=== PATIENT | male | born 1965 | race African-American/Black ===

== ENCOUNTER 2016-09-05 16:05 | Emergency (ER) | payer SELFPAY ==
[~2016-09-05] VITALS: Ht 185.4 cm; Wt 75.3 kg
[~2016-09-05 16:05] MED LIST: HYDR-1421; RABE20TA5
[2016-09-05 18:07] VITALS: BP 135/78
[2016-09-05] MEDS ORDERED: KETOROLAC TROMETH 60MG/2ML VIAL IM ONE (20:00)
== END 2016-09-05 20:12 | disposition home or self-care (01) ==
LOC: ER 16:10
DX: S13.9XXA Sprain of joints and ligaments of unspecified parts of neck, initial encounter (principal); M79.1 Myalgia; K21.9 Gastro-esophageal reflux disease without esophagitis; G89.29 Other chronic pain; M54.5 Low back pain; Z59.0 Homelessness; V49.40XA Driver injured in collision with unspecified motor vehicles in traffic accident, initial encounter; Y93.89 Activity, other specified; Y99.8 Other external cause status; Y92.89 Other specified places as the place of occurrence of the external cause
CPT/HCPCS: 96372; 99283; J1885

== ENCOUNTER → 2021-10-24 | Emergency (ER) | payer MEDICAID ==
[~2021-10-24] VITALS: Ht 185.4 cm; Wt 80.7 kg
[~2021-10-24] MED LIST changes: +ASPirin 81 mg TAB PO ONE; +RABE20TA19; -RABE20TA5
[2021-10-24 14:25] LABS: Eosinophils # (auto) 0.1 10 ^3/uL (0-0.8); Monocytes # (auto) 0.5 10 ^3/uL (0-1.3)
[2021-10-24 14:28] LABS: Basophils # (auto) 0.1 10 ^3/uL (0-0.2); Basophils % (auto) 2.8 % (0.0-2.0); Eosinophils % (auto) 2.9 % (0.0-7.0); Hematocrit 34.8 % (41.0-53.0); Hemoglobin 10.9 g/dL (13.5-17.5); Lymphocytes # (auto) 0.5 10 ^3/uL (0.4-5.4); Lymphocytes % (auto) 11.3 % (10.0-50.0); Mean Corpuscular Hemoglobin 24.1 pg (28.0-32.0); Mean Corpuscular Hgb Conc. 31.4 g/dL (32.0-36.0); Mean Corpuscular Volume 76.8 fL (80.0-100.0); Monocytes % (auto) 11.5 % (0.0-12.0); Neutrophils # (auto) 3.1 10 ^3/uL (1.6-8.6); Neutrophils % (auto) 71.5 % (37.0-80.0); Nucleated Red Blood Cells % 0.3 %; Red Blood Cells 4.53 10^6/uL (4.5-5.90); White Blood Cell 4.3 10^3/uL (4.4-10.8)
[2021-10-24 14:33] LABS: Albumin 3.1 g/dL (3.4-5.0); Calcium 8.5 mg/dL (8.5-10.1)
[2021-10-24 14:37] LABS: BUN/Creatinine Ratio 10.8; Bilirubin, Total 0.6 mg/dL (0.2-1.0); Total Protein 6.8 g/dL (6.4-8.2)
[2021-10-24 17:12] LABS: Urine Bacteria NONE SEEN /hpf (None Seen); Urine Blood Negative /uL (Negative); Urine Mucus FEW (None Seen); Urine Specific Gravity 1.025 (1.001-1.035); Urine WBC 1 /hpf (0 - 3)
[2021-10-24 17:43] VITALS: BP 135/89
== END | disposition home or self-care (01) ==
LOC: ER 12:39
DX: R00.2 Palpitations (principal); K21.9 Gastro-esophageal reflux disease without esophagitis; Z79.899 Other long term (current) drug therapy
CPT/HCPCS: 36415; 70450; 71045; 80053; 81001; 84443; 84484; 85025; 93005

== ENCOUNTER → 2024-03-10 | Outpatient (CLI) | payer MEDICAID ==
[~2024-03-10] MED LIST changes: -ASPirin 81 mg TAB PO ONE
--- NOTE | 2024-03-10 13:29 | DVH ---
EXAM: XY CHEST TWO VIEWS ROUTINE TECHNIQUE: Two radiographic views of the chest CLINICAL HISTORY: SOB COMPARISON: 10/24/2021 Findings/Impression: Frontal and lateral chest radiographs demonstrate no acute osseous or superficial soft tissue abnorma lities. The trachea is midline. The cardiac silhouette is within normal limits. Enlarged pulmonary arteries. Correlate for pulmonary artery hypertension. No pneumothorax, pleural effusions, or consolidations.
== END | disposition home or self-care (01) ==
LOC: Rad HDHVI 12:54
PROVIDERS: ATTEND Internal Medicine Cardiovascular Disease
DX: R06.02 Shortness of breath (principal); I77.89 Other specified disorders of arteries and arterioles
CPT/HCPCS: 71046

== ENCOUNTER → 2024-03-23 | Outpatient (CLI) | payer MEDICAID ==
[~2024-03-23] VITALS: Ht 188 cm; Wt 72.6 kg
[~2024-03-23] MED LIST changes: +ADENOSINE 61 MG in GIVE UN-DILUTED 0 ML IV ONE; +ADENOSINE 90 MG/30 ML INJ IV ONE
== END | disposition home or self-care (01) ==
LOC: Rad HDHVI 13:19
PROVIDERS: ATTEND Internal Medicine Cardiovascular Disease
DX: J44.9 Chronic obstructive pulmonary disease, unspecified (principal); I73.9 Peripheral vascular disease, unspecified; I50.23 Acute on chronic systolic (congestive) heart failure; F17.210 Nicotine dependence, cigarettes, uncomplicated
CPT/HCPCS: 78452; 93005; 96374; A9500; J0153; 96375

== ENCOUNTER → 2024-03-30 | Outpatient (CLI) | payer MEDICAID ==
[~2024-03-30] MED LIST changes: -ADENOSINE 61 MG in GIVE UN-DILUTED 0 ML IV ONE; -ADENOSINE 90 MG/30 ML INJ IV ONE
== END | disposition home or self-care (01) ==
LOC: Rad HDHVI 09:42
PROVIDERS: ATTEND Internal Medicine Cardiovascular Disease
CPT/HCPCS: 93925

== ENCOUNTER 2024-07-27 20:15 | Inpatient (IN) | payer MEDICAID ==
[~2024-07-27] VITALS: Ht 185.4 cm; Wt 75.4 kg
[2024-07-27] MEDS: IPRATROPIUM BROM 0.5 MG/2.5ML INH SOL NEB ONE (20:47)
[2024-07-27] MEDS: ALBUTEROL SULF 2.5 MG/0.5ML(0.5%) NEB SOLN NEB ONE (20:47)
[2024-07-27 21:04] LABS: Basophils # (auto) 0 10 ^3/uL (0-0.2); Eosinophils # (auto) 0.1 10 ^3/uL (0-0.8); Eosinophils % (auto) 3.2 % (0.0-7.0); Hematocrit 38.6 % (41.0-53.0); Hemoglobin 12.7 g/dL (13.5-17.5); Lymphocytes # (auto) 0.5 10 ^3/uL (0.4-5.4); Lymphocytes % (auto) 15.2 % (10.0-50.0); Mean Corpuscular Hemoglobin 33.2 pg (28.0-32.0); Mean Corpuscular Volume 100.6 fL (80.0-100.0); Monocytes # (auto) 0.5 10 ^3/uL (0-1.3); Monocytes % (auto) 14.4 % (0.0-12.0); Neutrophils # (auto) 2.4 10 ^3/uL (1.6-8.6); Neutrophils % (auto) 66.2 % (37.0-80.0); Nucleated Red Blood Cells % 0.5 %; Platelet Count (auto) 221 10^3/uL (140-450); Red Blood Cells 3.84 10^6/uL (4.5-5.90); Red Cell Distribution Width 19.5 % (11.8-14.3); White Blood Cell 3.6 10^3/uL (4.4-10.8)
[2024-07-27 21:06] LABS: Chloride 105 mmol/L (98-107); Sodium 143 mmol/L (136-145)
[2024-07-27 21:07] LABS: Anion Gap 13 (5-15); Carbon Dioxide 25 mmol/L (20-31)
[2024-07-27 21:11] LABS: Calcium 8.4 mg/dL (8.7-10.4); Potassium 3.2 mmol/L (3.5-5.1)
[2024-07-27 21:12] LABS: BUN/Creatinine Ratio 9.1 (10.0-20.0); Glucose 88 mg/dL (74-106)
[2024-07-27 21:13] LABS: Blood Urea Nitrogen 6 mg/dL (9-23)
--- NOTE | 2024-07-27 21:31 | ED.PDOC ---
History of Present Illness HPI Comments 58 y/o M presents with c/o chest pain, today. Patient is a poor historian and endorses on constant pain in his chest following unprovoked onset a few days ago. He states on seeing his PCP in-person regarding pain and refusing to be sent to his nearest emergency department via ambulance on 07/24/24 and coming, today, due to his daughter bringing him, while visiting from out-of-town. He reports no further relevant or pertinent information, such as recent injuries, sick contact, stressors, or strenuous activities. He denies any shortness of breath, palpitations, nausea, vomiting, fever, chills, or other associated symptoms or modifying factors at this time. Patient has a reported history of CHF, COPD, and GERD Chief Complaint: Chest Pain Time Seen by MD: 20:22 Primary Care Provider: ALIAK Reviewed Notes: Nurses Notes, Medications, Allergies Allergies: Coded Allergies: NO KNOWN ALLERGIES (Unverified , 03/03/10) Home Meds Reported Medications Rabeprazole Sodium (Aciphex) 20 Mg Tab 03/03/10 Hydrocodone-Acetaminophen (Vicodin) 1 Tab Tab 03/03/10 Information Source: Patient Mode of Arrival: Wheelchair Severity: Moderate Timing: Days Duration: Since onset Prehospital treatment: None Past Medical History PAST MEDICAL HISTORY: CHF, COPD, GERD Surgical History: Denies all surgeries Family History Family History: Unknown Social History Smoker: Non-Smoker Alcohol: Denies ETOH Use Drugs: Denies Drug Use Lives In: Home All Other Systems: Reviewed and Negative (Comprehensive systems review obtained and negative except for what is stated in the HPI.) Physical Exam General Appearance: No Apparent Distress, Normal HEENT: Normal ENT Inspection, Pharynx Normal, TMs Normal Neck: Full Range of Motion, Non-Tender, Normal, Normal Inspection Respiratory: Chest Non-Tender, Lungs Clear, No Accessory Muscle Use, No Respiratory Distress, Normal Breath Sounds, Wheezing (expiratory, bilateral lung jimenez ) Cardiovascular: No Edema, No JVD, No Murmur, No Gallop, Normal Peripheral Pulses, Tachycardia, Other (regular rhythm ) Breast Exam: Deferred Gastrointestinal: No Organomegaly, Non Tender, No Pulsatile Mass, Normal Bowel Sounds, Soft Genitalia: Deferred Pelvic: Deferred Rectal: Deferred Extremities: No calf tenderness, Normal capillary refill, Normal inspection, Normal range of motion, Non-tender, No pedal edema Musculoskeletal : Apperance: Normal Neurologic: Alert, linux administrator II-XII nml as Tested, No Motor Deficits, Normal Affect, Normal Mood, No Sensory Deficits Cerebellar Function: Normal Reflexes: Normal Skin: Dry, Normal Color, Warm Lymphatic: No Adenopathy Was a procedure done? Was a procedure done?: No EKG EKG : Pulse Rate (adult): 116 [place]: Normal Cardiac Rhythm: ST Block: None Hypertrophy: None ST: Normal Differential Dx Considerations may include: MA, ACS, PE, viral syndrome, musculoskeletal pain, GERD, gastritis, costochondritis, pericarditis, PNA, URI, among others X-Ray, Labs, Meds, VS Vital Signs Date Time Temp Pulse Resp B/P (MAP) Pulse Ox O2 Delivery O2 Flow Rate FiO2 07/27/24 21:31 116 07/27/24 21:14 105 07/27/24 20:47 22 96 Room Air* 0 21 07/27/24 20:23 116 07/27/24 20:20 98.4 108 18 126/83 (97) 94 98.4 Lab Test 07/27/24 21:30 07/27/24 20:30 Range/Units Troponin I High Sensitivity 67 *H 76 *H </=54 ng/L White Blood Count 3.6 L 4.4-10.8 10^3/uL Red Blood Count 3.84 L 4.5-5.90 10^6/uL Hemoglobin 12.7 L 13.5-17.5 g/dL Hematocrit 38.6 L 41.0-53.0 % Mean Corpuscular Volume 100.6 H 80.0-100.0 fL Mean Corpuscular Hemoglobin 33.2 H 28.0-32.0 pg Mean Corpuscular Hemoglobin Concent 33.0 32.0-36.0 g/dL Red Cell Distribution Width 19.5 H 11.8-14.3 % Platelet Count 221 140-450 10^3/uL Mean Platelet Volume 7.7 6.9-10.8 fL Neutrophils (%) (Auto) 66.2 37.0-80.0 % Lymphocytes (%) (Auto) 15.2 10.0-50.0 % Monocytes (%) (Auto) 14.4 H 0.0-12.0 % Eosinophils (%) (Auto) 3.2 0.0-7.0 % Basophils (%) (Auto) 1.0 0.0-2.0 % Neutrophils # (Auto) 2.4 1.6-8.6 10 ^3/uL Lymphocytes # (Auto) 0.5 0.4-5.4 10 ^3/uL Monocytes # (Auto) 0.5 0-1.3 10 ^3/uL Eosinophils # (Auto) 0.1 0-0.8 10 ^3/uL Basophils # (Auto) 0 0-0.2 10 ^3/uL Nucleated Red Blood Cells 0.5 % Sodium Level 143 136-145 mmol/L Potassium Level 3.2 L 3.5-5.1 mmol/L Chloride Level 105 98-107 mmol/L Carbon Dioxide Level 25 20-31 mmol/L Anion Gap 13 5-15 Blood Urea Nitrogen 6 L 9-23 mg/dL Creatinine 0.66 L 0.700-1.30 mg/dL Glomerular Filtration Rate Calc 108 >90 mL/min BUN/Creatinine Ratio 9.1 L 10.0-20.0 Serum Glucose 88 74-106 mg/dL Calcium Level 8.4 L 8.7-10.4 mg/dL B-Type Natriuretic Peptide 491.21 0-100 pg/mL Current Medications Medications (Trade) Dose Ordered Sig/[place] Route Start Time Stop Time Status Last Admin Albuterol (Ventolin Medneb) 5 mg ONCE ONCE NEB 07/27/24 20:30 07/27/24 20:31 DC 07/27/24 20:47 Ipratropium [place] (Atrovent Medneb) 0.5 mg ONCE ONCE NEB 07/27/24 20:30 07/27/24 20:31 DC 07/27/24 20:47 Time of 1ST Reevaluation: 20:52 Reevaluation 1ST: Unchanged Patient Education/Counseling: Diagnosis, Treatment Family Education/Counseling: No Family Present Additional Information Previous visit documents reviewed: October 24, 2021 encounter for eye pain and swelling The following tests were ordered, and results were reviewed by me: CXR, BMP, CBC, BNP, EKG, troponin Additional Information was gathered from interviewing the following independent historians: n/a I reviewed and agreed with the following test results read by other providers: CXR I discussed treatment and results with medical personnel and: Patient Departure 1 Departure Time of Disposition: 22:51 (Patient presented with chest pain that was concerning for possible STEMI, ACS, PE, Pneumonia, Muscle Strain, COPD, Dissection. Data: 1. I ordered and reviewed the result of at least 3 labs including a CBC, BMP, and Troponin. 2. I independently interpreted the following tests: EKG which shows sinus arrhythmia and Chest X-ray which shows emphysematous changes.Risk:This patient has a high risk of morbidity due to further diagnostic testing or treatment and may suffer from an acute cardiac or respiratory disorder. Workup reveals concern for ACS and patient should be admitted for further workup and possible expert consultation. ) Impression: Primary Impression: Acute chest pain Additional Impression: Shortness of breath Disposition: ADMITTED INPATIENT Admit to: Med Surg Condition: Serious Critical Care Note Critical Care Time?: Yes Critical care comment: Acute chest pain Authorized and Performed by: Valentina Badillo MD Total critical care time: Approximately 39 minutes Due to a high probability of clinically significant, life threatening de terioration, the patient required my highest level of preparedness to intervene emergently and I personally spent this critical care time directly and personally managing the patient. This critical care time included obtaining a history; examining the patient; pulse oximetry; ordering and review of studies; arranging urgent treatment with development of a management plan; evaluation of patient's response to treatment; frequent reassessment; and, discussions with other providers. This critical care time was performed to assess and manage the high probability of imminent, life-threatening deterioration that could result in multi-organ failure. It was exclusive of separately billable procedures and treating other patients and teaching time. Please see my other sections and the rest of the note for further information on patient assessment and treatment. Stability Stability form required: No Heart Score Heart Score: Heart Score Response (Comments) Value History Moderate Suspicious 1 EKG Normal 0 Age 45-64 1 Risk Factors 1 or 2 risk factors 1 Troponin 1-2 x's Normal limit 1 Total 4 I personally scribed for VALENTINA BADILLO MD ([email or web address]) on 07/27/24 at 21:31. Electronically submitted by Shawn Hall ([email or web address]). I personally scribed for VALENTINA BADILLO MD ([email or web address]) on 07/27/24 at 21:39. Electronically submitted by Shawn Hall ([email or web address]). VALENTINA BADILLO MD Jul 27, 2024 21:31
--- NOTE | 2024-07-27 22:22 | DVH ---
CHEST RADIOGRAPH Indication: sob Technique: Single frontal view of the chest was obtained COMPARISON: CHEST PORTABLE on DOS: 03/10/2024 FINDINGS: Lines and Tubes: None Lungs: Findings suggestive of emphysematous changes. No pulmonary infiltrates or edema. Enlarged pulm onary arteries suggestive of pulmonary arterial hypertension. Pleura: No effusion. No pneumothorax. Cardiomediastinal contours: Unremarkable IMPRESSION: No definite acute abnormality identified. Findings suggestive of emphysematous changes and pulmonary arterial hypertension.
[2024-07-27] MEDS ORDERED: MORPHINE SULFATE INJ 2 MG/ml SYRG IV PRN (23:30)
[2024-07-27] MEDS ORDERED: ONDANSETRON HCL 4 MG/2 ML VIAL IV PRN (23:30)
[2024-07-27] MEDS ORDERED: ACETAMINOPHEN 325 MG TAB PO PRN (23:30)
[2024-07-27] MEDS ORDERED: NITROGLYCERIN 0.4 MG SL TAB SL PRN (23:30)
--- NOTE | 2024-07-27 23:55 | DVHHPRES ---
History of Present Illness Resident Creating Document: BRIANNE ALVAREZ RESDIENT History of Present Illness This is a 58-year-old male with past medical history of CHF, ? COPD, and GERD brought to the hospital due to chest pain. Per patient, he has a chronic chest pain (almost 2 years), which has increased since 3 days. Pain is localized on left side, pressure-like, constant, 7/10, with no clear exacerbating or relieving factor, but decreases by taking [place]. He also reports cough, shortness of breaths, dysphagia, odynophagia, alternating constipation and diarrhea, decreased oral intake, unintentional weight loss of 15 lb within last year, and generalized weakness. He denies fever, dysuria, or any recent sick contact and travel history. Three days back upon PCP office visit he was recommended to visit ER due to heart condition but the patient denied to visit the ER. PMHx: CHF, ? COPD, and GERD PSHx: Has history of herniated disc Family history: Noncontributory Social history: Current smoker with 20 pack year history, smokes weeds, drink occasionally, denies any other drug use, uses walker for mobility due to bilateral lower limb weakness (possible due to low back herniated disc) Home medication: Lasix and albuterol Allergic history: No known allergy Review of Systems Review of Systems General: Reports generalized weakness, decreased oral intake and weight loss HEENT: No headaches, visiual changes, hearing loss, tinnitus, nasal congestion and discharge, and sore throat. Cardiovascular: Reports chest pain Respiratory: Reports shortness of breaths Gastrointestinal: Reports dysphagia, odynophagia, nausea, vomiting and alternating diarrhea and constipation Genitourinary: No dysuria, hematuria, discharge, frequency, urgency, nocturia, incontinence, and urinary retention. Endocrine: No heat or cold intolerance, polydipsia, polyuria, and polyphagia. Neurological: No dizziness, extremity weakness and numbness, tremors, gait disturbance, seizures, and memory impairment. Psychiatric: Denies depression, anxiety,or insomnia. Musculoskeletal: Reports low back pain and bilateral lower limb weakness Skin: No rashes, itching, skin lesion, changes in hair, nail, skin texture and breast. Hematologic/Lymphatic: Denies easy bruising, bleeding tendencies, or lymph node enlargement. Allergies: Coded Allergies: NO KNOWN ALLERGIES (Unverified , 03/03/10) Exam Vital Signs Vital Signs Date Time Temp Pulse Resp B/P (MAP) Pulse Ox O2 Delivery O2 Flow Rate FiO2 07/27/24 23:07 98 07/27/24 22:33 98.5 16 128/84 (99) 93 98.5 07/27/24 20:47 Room Air* 0 21 Exam General Appearance: Alert, Oriented X3, Cooperative, No acute distress HEENT: Atraumatic, PERRLA, EOMI, Mucous membrane moist/pink Respiratory: Clear to auscultation, Normal air movement Cardiovascular: Regular rate, Normal S1, Normal S2, No murmurs, no chest wall tenderness Abdominal: Normal bowel sounds, Soft, No tenderness, No hepatospenomegaly, No masses Extremities: Bilateral grade 1 pedal edema Skin: No rashes, No breakdown, No significant lesion Neuro: Bilateral lower limb power 4/5 Psych/Mental Status: Mental status NL, Mood NL Labs/Xrays Labs Test 07/27/24 23:44 07/27/24 20:30 Range/Units White Blood Count 3.6 L 4.4-10.8 10^3/uL Red Blood Count 3.84 L 4.5-5.90 10^6/uL Hemoglobin 12.7 L 13.5-17.5 g/dL Hematocrit 38.6 L 41.0-53.0 % Mean Corpuscular Volume 100.6 H 80.0-100.0 fL Mean Corpuscular Hemoglobin 33.2 H 28.0-32.0 pg Mean Corpuscular Hemoglobin Concent 33.0 32.0-36.0 g/dL Red Cell Distribution Width 19.5 H 11.8-14.3 % Platelet Count 221 140-450 10^3/uL Mean Platelet Volume 7.7 6.9-10.8 fL Neutrophils (%) (Auto) 66.2 37.0-80.0 % Lymphocytes (%) (Auto) 15.2 10.0-50.0 % Monocytes (%) (Auto) 14.4 H 0.0-12.0 % Eosinophils (%) (Auto) 3.2 0.0-7.0 % Basophils (%) (Auto) 1.0 0.0-2.0 % Neutrophils # (Auto) 2.4 1.6-8.6 10 ^3/uL Lymphocytes # (Auto) 0.5 0.4-5.4 10 ^3/uL Monocytes # (Auto) 0.5 0-1.3 10 ^3/uL Eosinophils # (Auto) 0.1 0-0.8 10 ^3/uL Basophils # (Auto) 0 0-0.2 10 ^3/uL Nucleated Red Blood Cells 0.5 % Sodium Level 143 136-145 mmol/L Potassium Level 3.2 L 3.5-5.1 mmol/L Chloride Level 105 98-107 mmol/L Carbon Dioxide Level 25 20-31 mmol/L Anion Gap 13 5-15 Blood Urea Nitrogen 6 L 9-23 mg/dL Creatinine 0.66 L 0.700-1.30 mg/dL Glomerular Filtration Rate Calc 108 >90 mL/min BUN/Creatinine Ratio 9.1 L 10.0-20.0 Serum Glucose 88 74-106 mg/dL Calcium Level 8.4 L 8.7-10.4 mg/dL B-Type Natriuretic Peptide 491.21 0-100 pg/mL Assessment/Plan Assessment/Plan NSTEMI, possible type 1 History of heart failure EKGs shows T-wave inversion and mild ST depression on inferior leads Consult cardiology Check echocardiogram Aspirin Atorvastatin Continue Lasix COPD exacerbation SIRS positive Check sputum culture, MRSA and COVID Solu-Medrol Empiric antibiotic, azithromycin Breathing treatment Oxygen through nasal cannula GERD history Patient reports unintentional weight loss, odynophagia/dysphagia Protonix Consulted GI Current cigarettes smoker Current weeds smoker Patient was consulted for smoking cessation for more than 15 minutes Hypokalemia, repleted Hypomagnesemia, repleted DIET: Cardiac diet DVT PROPHYLAXIS: Lovenox GI PROPHYLAXIS:: Protonix CODE STATUS: Goal of care for more than 18 minutes, full code DISPOSITION: Telemetry Patient's status and plan discussed with the patient and patient's daughters at the bedside. Case discussed with Dr. Levin. Plan discussed with: Patient, Other (RN) Date of Service: Jul 27, 2024 Billing Provider: MARÍA LEVIN MD Common Visit Codes: 12385-RIDOPIR INP/OBS CARE (HIGH) Secondary Visit Codes: 35125-NVFLEEXC CARE PLAN 30 MINUTES BRIANNE ALVAREZ RESDIENT Jul 27, 2024 23:55 MARÍA LEVIN MD Jul 28, 2024 15:37
[2024-07-28] VITALS (15 sets, daily range): BP systolic 114–133; BP diastolic 67–92; PULSE 64–105; RESP 15–20; TEMP 97.2–98.4; O2SAT 90–100
[2024-07-28 01:37] LABS: Triglycerides 74 mg/dL (< 150)
[2024-07-28 01:38] LABS: LDL Cholesterol 48 mg/dL (< 100)
[2024-07-28 01:39] LABS: Cholesterol 191 mg/dL (< 200)
[2024-07-28 01:43] LABS: HDL Cholesterol 117 mg/dL (40-59)
[2024-07-28] MEDS: PANTOPRAZOLE 40 MG/10 ML VIAL INJ IV ONE (02:51)
[2024-07-28] MEDS: ASPirin 325 MG TAB PO ONE (02:51)
[2024-07-28] MEDS: ATORVASTATIN 20 MG TAB PO ONE (02:52)
[2024-07-28] MEDS: AZITHROMYCIN 500MG/ 250ML 250 ML IV ONE (03:03)
--- NOTE | 2024-07-28 05:37 | ECG ---
[facility] Test Date: 2024-07-27 Test Time: 21:14:34 Pat Name: REJI BALLARD Department: ED Room: [facility]5T A Gender: M Hotel Operations Manager: DAPHNIE : 1965 Requested By: VALENTINA MELGAR Order Number: [id number] Reading MD: Vincent Edwards Measurements Intervals [place] Rate: 105 P: 84 MA: 157 QRS: 159 QRSD: 83 T: -29 QT: 351 QTc: 465 Interpretive Statements Sinus tachycardia Right ventricular hypertrophy Nonspecific T abnormalities, anterior leads Electronically Signed On 07-30-2024 14:00:03 PDT by Vincent Edwards Please click the below link to view image of tracing.
--- NOTE | 2024-07-28 05:38 | ECG ---
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
[2024-07-28 05:48] LABS: COVID19 ANTIGEN SOFIA FIA NEGATIVE (NEGATIVE)
[2024-07-28] MEDS: LEVALBUTEROL HCL 1.25 MG/3 ML NEB NEB SCH (06:19)
[2024-07-28] MEDS: IPRATROPIUM BROM 0.5 MG/2.5ML INH SOL NEB SCH (06:19)
[2024-07-28 08:04] LABS: Anion Gap 8 (5-15); Carbon Dioxide 29 mmol/L (20-31); Chloride 105 mmol/L (98-107); Sodium 142 mmol/L (136-145)
[2024-07-28 08:05] LABS: Potassium 3.1 mmol/L (3.5-5.1)
[2024-07-28 08:10] LABS: BUN/Creatinine Ratio 7.5 (10.0-20.0); Glucose 89 mg/dL (74-106)
[2024-07-28 08:12] LABS: Blood Urea Nitrogen 5 mg/dL (9-23); Calcium 7.9 mg/dL (8.7-10.4); Magnesium 1.3 mg/dL (1.6-2.6)
[2024-07-28 08:22] LABS: Basophils # (auto) 0.1 10 ^3/uL (0-0.2); Basophils % (auto) 1.3 % (0.0-2.0); Eosinophils # (auto) 0.1 10 ^3/uL (0-0.8); Eosinophils % (auto) 2.4 % (0.0-7.0); Hematocrit 34.2 % (41.0-53.0); Hemoglobin 11.4 g/dL (13.5-17.5); Lymphocytes # (auto) 0.4 10 ^3/uL (0.4-5.4); Lymphocytes % (auto) 10.8 % (10.0-50.0); Mean Corpuscular Hemoglobin 33.6 pg (28.0-32.0); Mean Corpuscular Hgb Conc. 33.4 g/dL (32.0-36.0); Mean Corpuscular Volume 100.6 fL (80.0-100.0); Monocytes # (auto) 0.7 10 ^3/uL (0-1.3); Monocytes % (auto) 17.8 % (0.0-12.0); Neutrophils # (auto) 2.8 10 ^3/uL (1.6-8.6); Neutrophils % (auto) 67.7 % (37.0-80.0); Nucleated Red Blood Cells % 0.6 %; Platelet Count (auto) 195 10^3/uL (140-450); Red Cell Distribution Width 19.1 % (11.8-14.3); White Blood Cell 4.1 10^3/uL (4.4-10.8)
--- NOTE | 2024-07-28 08:48 | ECG ---
[facility] Test Date: 2024-07-27 Test Time: 20:23:43 Pat Name: REJI BALLARD Department[facility] Gender: M Farm Manager: RYAN : 1965 Requested By: VALENTINA MELGAR Order Number: [id number] Reading MD: Vincent Edwards Measurements Intervals [place] Rate: 116 P: 79 IA: 138 QRS: 164 QRSD: 92 T: 85 QT: 469 QTc: 652 Interpretive Statements Sinus tachycardia Probable left atrial enlargement RVH with secondary repolarization abnrm Prolonged QT interval Electronically Signed On 07-30-2024 13:59:50 PDT by Vincent Edwards Please click the below link to view image of tracing.
[2024-07-28 09:11] LABS: Rapid Influenza A Negative (Negative); Rapid Influenza B Negative (Negative)
--- NOTE | 2024-07-28 09:28 | DVHPN2 ---
Progress Note - Dictate Date Seen: Jul 28, 2024 Medical Necessity Reason Pt with a Central, PICC or Fol: No Subjective PT WITH CHEST PAIN TROPONIN NEGATIVE HX OF CHF COPD HTN MILD ANEMIA ELEVATED MCV HYPOKALEMIA vital signs Vital Sign Date Time Temp Pulse Resp B/P (MAP) Pulse Ox O2 Delivery O2 Flow Rate FiO2 07/28/24 06:25 77 18 100 07/28/24 06:19 Nasal Cannula 3.0 07/28/24 06:19 32 07/28/24 05:00 98.3 122/67 (85) 98.3 Total Intake and Output 07/27/24 07/27/24 07/28/24 15:00 23:00 07:00 Intake Total 30 ml Balance 30 ml medications Current Medications Medications Dose Ordered Sig/Kalia Route Start Time Stop Time Status Last Admin Dose Admin Acetaminophen 650 mg Q6HP PRN PO 07/27/24 23:30 Acetaminophen/ Hydrocodone Bitart 1 tab Q4HP PRN PO 07/27/24 23:30 Ondansetron HCl 4 mg Q4HP PRN IV 07/27/24 23:30 Morphine Sulfate 2 mg Q4HPRN PRN IV 07/27/24 23:30 Enoxaparin Sodium 40 mg DAILY SC 07/28/24 10:00 Nitroglycerin 0.4 mg Q5MINP PRN SL 07/27/24 23:30 Morphine Sulfate 2 mg Q30M PRN IV 07/27/24 23:30 Atorvastatin Calcium 40 mg HS PO 07/28/24 22:00 Aspirin 81 mg DAILY PO 07/29/24 10:00 Pantoprazole Sodium 40 mg DAILY IV 07/28/24 10:00 Azithromycin 250 ml @ 125 mls/hr DAILY IV 07/29/24 10:00 Levalbuterol HCl 0.625 mg Q6HR NEB 07/28/24 06:00 07/28/24 06:19 0.625 MG Ipratropium [place] 0.5 mg Q6HWA NEB 07/28/24 06:00 07/28/24 06:19 0.5 MG Furosemide 20 mg BIDD IV 07/28/24 18:00 UNV laboratory and microbiology Laboratory Tests 07/28/24 07:07 Test 07/28/24 07:07 Range/Units Serum Glucose Pending Problem List CHEST PAIN TROPONIN NEGATIVE HX OF CHF COPD HTN MILD ANEMIA ELEVATED MCV HYPOKALEMIA Assessment/Plan WILL CONSIDER LHC SINCE PT WITH RECURRENT CP STRESS CARDIOLITE ON 03/30/24 SHOWS NORMAL PERFUSION Plan discussed with: Patient ADEN SMILEY MD Jul 28, 2024 09:28
[2024-07-28] MEDS: PANTOPRAZOLE 40 MG/10 ML VIAL INJ IV SCH (10:00)
[2024-07-28] MEDS: ENOXAPARIN SOD 40 MG/0.4 ML SYRINGE SC SCH (10:01)
[2024-07-28] MEDS: POTASSIUM CHL 20 Meq TABLET PO ONE (10:01)
[2024-07-28 10:57] LABS: Folate (Folic Acid) 5.84 ng/mL (>5.38)
[2024-07-28 11:20] LABS: Alkaline Phosphatase 76 U/L (46-116); Anion Gap 10 (5-15); BUN/Creatinine Ratio 8.5 (10.0-20.0); Carbon Dioxide 27 mmol/L (20-31); Chloride 106 mmol/L (98-107); Glucose 87 mg/dL (74-106); Sodium 143 mmol/L (136-145)
[2024-07-28 11:21] LABS: Bilirubin, Total 0.5 mg/dL (0.2-1.0)
[2024-07-28 11:22] LABS: Alanine Aminotransferase 41 U/L (7-40); Aspartate Aminotransferase 132 U/L (13-40); Blood Urea Nitrogen 6 mg/dL (9-23); Calcium 7.9 mg/dL (8.7-10.4); Potassium 3.2 mmol/L (3.5-5.1); Total Protein 4.6 g/dL (5.7-8.2)
[2024-07-28 11:23] LABS: Albumin 2.8 g/dL (3.2-4.8)
[2024-07-28 11:34] LABS: Urine Bacteria None Seen /hpf (None Seen)
[2024-07-28 11:53] LABS: Urine Blood Negative /uL (Negative); Urine Clarity Clear (Clear); Urine Color Yellow (Yellow); Urine Protein, UAD Negative (Negative); Urine Specific Gravity 1.013 (1.001-1.035); Urine Squamous Epithelial Cell FEW /hpf (<5); Urine Urobilinogen 4 mg/dL (Negative); Urine WBC < 1 /HPF (0-3)
[2024-07-28] MEDS: MAGNESIUM SULFATE 1GM/100ML 100 ML IV ONE (11:58)
[2024-07-28] MEDS: HYDROcodone-ACET 5/325MG TAB PO PRN (12:02)
[2024-07-28 12:08] LABS: Amphetamine Screen, Urine Neg (NEGATIVE); Barbiturate Scree,Urine Neg (NEGATIVE); Benzodiazephine Screen, Urine Neg (NEGATIVE); Cannabinoid Screen, Urine Pos (NEGATIVE); Cocaine Screen, Urine Neg (NEGATIVE); Opiate Scree,Urine Neg (NEGATIVE); Phencyclidine Screen, Urine Neg (NEGATIVE)
--- NOTE | 2024-07-28 13:55 | DVHINCON2 ---
GI Consult Consult Note GI consult note Date of Consultation: 07/28/2024 Chief Complaint: Dysphagia with unintentional weight loss Referring Physician:Dr Keen H&P: 58-year-old male presented to ER with chest pain, on and off for two years, which has worsened in the last three days Patient also complains of dysphagia on odynophagia on and off for the last three months. Mostly feels like food is stuck in the upper esophagus Patient also complains of burning sensation in his esophagus. Has history of GERD. No medications at this time for this Patient has nausea and vomiting. No hematemesis. Patient also complains of pain in his epigastric area Patient admits to alternating diarrhea and constipation symptoms, and has noticed melena also Patient complains of weight loss of 12 lb in the last 2-3 months Last EGD was more than 40 years ago per patient. Patient is on aspirin and Lovenox at this time Past Medical History: CHF, ? COPD, and GERD Past Surgical History: Social History: Current smoker with 20 pack year history, smokes weeds, drink occasionally, denies any other drug use, uses walker for mobility due to bilateral lower limb weakness (possible due to low back herniated disc) Family History: Noncontributory Review of Systems: Constitutional: no fever, chill, weight loss HEENT: no eye pain, no hearing loss, no oral lesion, no scleral icterus Heart: no chest pain, no chest pressure Lung: no cough, no dyspnea with exertion Abdomen: see HPI Physical exam: General: NAD, AAOX3 Chest: lung jimenez clear to auscultation Heart: RRR, no murmur Abdomen: non-distended, no tenderness to palpation, +BS, no hepatosplenomegaly Labs: Labs Test 07/28/24 11:15 07/28/24 10:08 07/28/24 07:07 07/28/24 06:15 Range/Units Urine Color Yellow Yellow Urine Clarity Clear Clear Urine pH 6.0 5.0-9.0 Urine Specific [place] 1.013 1.001-1.035 Urine Protein Negative Negative Urine Ketones Trace Negative Urine Blood Negative Negative /uL Urine Nitrite Negative Negative Urine Bilirubin Negative Negative Urine Urobilinogen 4 H Negative mg/dL Urine Leukocyte Esterase Negative Negative /uL Urine RBC None seen 0 - 3 /hpf Urine Microscopic WBC < 1 0-3 /HPF Urine Squamous Epithelial Cells Few <5 /hpf Urine Bacteria None seen None Seen /hpf Urine Glucose Normal Normal mg/dL Urine Opiates Screen Neg NEGATIVE Urine Fentanyl Screen Neg NEGATIVE Urine Barbiturates Screen Neg NEGATIVE Urine Phencyclidine Screen Neg NEGATIVE Urine Amphetamines Screen Neg NEGATIVE Urine Benzodiazepines Screen Neg NEGATIVE Urine Cocaine Screen Neg NEGATIVE Urine Cannabinoids Screen Pos NEGATIVE Vitamin B12 Level 496 211-911 pg/mL Folic Acid 5.84 >5.38 ng/mL White Blood Count 4.1 L 4.4-10.8 10^3/uL Red Blood Count 3.40 L 4.5-5.90 10^6/uL Hemoglobin 11.4 L 13.5-17.5 g/dL Hematocrit 34.2 #L 41.0-53.0 % Mean Corpuscular Volume 100.6 H 80.0-100.0 fL Mean Corpuscular Hemoglobin 33.6 H 28.0-32.0 pg Mean Corpuscular Hemoglobin Concent 33.4 32.0-36.0 g/dL Red Cell Distribution Width 19.1 H 11.8-14.3 % Platelet Count 195 140-450 10^3/uL Mean Platelet Volume 7.9 6.9-10.8 fL Neutrophils (%) (Auto) 67.7 37.0-80.0 % Lymphocytes (%) (Auto) 10.8 10.0-50.0 % Monocytes (%) (Auto) 17.8 H 0.0-12.0 % Eosinophils (%) (Auto) 2.4 0.0-7.0 % Basophils (%) (Auto) 1.3 0.0-2.0 % Neutrophils # (Auto) 2.8 1.6-8.6 10 ^3/uL Lymphocytes # (Auto) 0.4 0.4-5.4 10 ^3/uL Monocytes # (Auto) 0.7 0-1.3 10 ^3/uL Eosinophils # (Auto) 0.1 0-0.8 10 ^3/uL Basophils # (Auto) 0.1 0-0.2 10 ^3/uL Nucleated Red Blood Cells 0.6 % Sodium Level 143 136-145 mmol/L Potassium Level 3.2 L 3.5-5.1 mmol/L Chloride Level 106 98-107 mmol/L Carbon Dioxide Level 27 20-31 mmol/L Anion Gap 10 5-15 Blood Urea Nitrogen 6 L 9-23 mg/dL Creatinine 0.71 0.700-1.30 mg/dL Glomerular Filtration Rate Calc 106 >90 mL/min BUN/Creatinine Ratio 8.5 L 10.0-20.0 Serum Glucose 87 74-106 mg/dL Lactic Acid Level 2.0 0.4-2.0 mmol/L Calcium Level 7.9 L 8.7-10.4 mg/dL Magnesium Level 1.3 L 1.6-2.6 mg/dL Total Bilirubin 0.5 0.2-1.0 mg/dL Aspartate Amino Transferase (AST) 132 H 13-40 U/L Alanine Aminotransferase (ALT) 41 H 7-40 U/L Alkaline Phosphatase 76 46-116 U/L Total Protein 4.6 L 5.7-8.2 g/dL Albumin 2.8 L 3.2-4.8 g/dL Thyroid Stimulating Hormone (TSH) 1.56 0.55-4.78 uIU/mL Influenza Type A Antigen Negative Negative Influenza Type B Antigen Negative Negative Test 07/28/24 05:00 07/27/24 23:44 07/27/24 20:30 Range/Units SARS-CoV-2 Antigen (Rapid) Negative NEGATIVE Troponin I High Sensitivity 77 *H </=54 ng/L Triglycerides Level 74 < 150 mg/dL Cholesterol Level 191 < 200 mg/dL LDL Cholesterol 48 < 100 mg/dL HDL Cholesterol 117 H 40-59 mg/dL Hemoglobin A1c 5.0 <5.7 % A1C B-Type Natriuretic Peptide 491.21 0-100 pg/mL Vitamin D 25-Hydroxy 10.1 L 30.0-100 ng/mL Free Thyroxine (T4) Calculated 1.02 0.89-1.76 ng/dL Imaging: Assessment: Dysphagia/odynophagia Abdominal pain History of GERD Possible GI bleed ? NSTEMI Weight loss Marijuana use Plan: -discussed with Dr. Briscoe Barium swallow Protonix and Carafate Stool for occult blood Monitor lab Patient undergoing cardiac workup at this time Possible EGD recommended after cardiac workup and cleared by Cardiology We will continue to monitor the patient Thank you for this consult Date of Service: Jul 28, 2024 Billing Provider: JACK DELA CRUZ Common Visit Codes: CONSULT ONLY Consultation Codes: [id number] CONSULT <60MIN JACK DELA CRUZ Jul 28, 2024 13:55
--- NOTE | 2024-07-28 14:12 | DVH ---
INDICATION: Transaminitis TECHNIQUE: Multiple real-time sonographic images were obtained of the right upper quadrant. COMPARISON: None FINDINGS: The liver demonstrates heterogeneous echotexture without focal mass lesions. The liver me asures 18cm. There is no intrahepatic or extrahepatic ductal dilatation. The common duct measures 0.2 mm. The gallbladder is without evidence of stone or sludge. The gallbladder wall measures 0.4 mm and is within normal limits. The right kidney measures 11 cm. The right kidney is normal in contour, size, and shape. The echogen icity is normal. There is no hydronephrosis. The pancreas is not well visualized due to overlying bowel gas. IMPRESSION: Hepatic steatosis
--- NOTE | 2024-07-28 14:14 | DVHPNRES ---
Progress Note Date Seen: Jul 28, 2024 Resident Creating Document: LORE SIMMONS RESIDENT Medical Necessity Reason Pt with a Central, PICC or Fol: No Subjective Review of Systems This is a 58 year old male with past medical history of CHF, COPD, GERD presented to the ED with a complaint of chest pain for last 3 days prior to this admission. According to the patient he has intermittent chest pain for last 2 years but since last 3 days is getting worse, localized in the left side, pressure-like, constant, 10/10 with no clear exacerbating or relieving factor but gets relieved by taking [place]. He also reports cough, shortness of breath, dysphagia, odynophagia, alternating bowel movement, decreased oral intake unintentional weight loss of 15 lb within last year and generalized weakness. He denies fever, dysuria, or any recent sick contact and travel history. Patient was seen and examined on the bedside. He is alert oriented x3 and on 2 L oxygen saturating 97% . complaining of chest discomfort especially during walking. No active complaint. Cardiology evaluated the patient and recommended possible left heart catheterization for recurrent chest pain. Constitutional: No: Fever, Chills, Sweats, Weakness, Malaise, Other Eyes: No: Pain, Vision change, Conjunctivae inflammation, Eyelid inflammation, Other, Redness ENT: No: Ear pain, Ear discharge, Nose pain, Nose discharge, Nose congestion, Mouth pain, Mouth swelling, Throat pain, Throat swelling, Other Respiratory: Shortness of breath, No: Cough, Dry,Wheezing, Hemoptysis, Pleuritic Pain, Sputum, Wheezing, Other Cardiovascular: Chest Pain, No Palpitations, Orthopnea, Paroxysmal Noc. Dyspnea, Edema, Lt Headedness, Other Gastrointestinal: No: Nausea, Vomiting, Abdominal Pain, Diarrhea, Constipation, Melena, Hematochezia, Other Musculoskeletal: No: other, neck pain, shoulder pain, arm pain, back pain, hand pain, leg pain, foot pain Neurological:; No: Weakness, Numbness, Incoordination, Change in speech, Confusion, Seizures Objective vital signs Vital Sign Date Time Temp Pulse Resp B/P (MAP) Pulse Ox O2 Delivery O2 Flow Rate FiO2 07/28/24 11:24 77 18 99 07/28/24 09:00 98.4 114/69 (84) 98.4 07/28/24 08:12 Nasal Cannula* 2 28 Total Intake and Output 07/27/24 07/27/24 07/28/24 15:00 23:00 07:00 Intake Total 30 ml Balance 30 ml medications Current Medications Medications Dose Ordered Sig/Kalia Route Start Time Stop Time Status Last Admin Dose Admin Acetaminophen 650 mg Q6HP PRN PO 07/27/24 23:30 Acetaminophen/ Hydrocodone Bitart 1 tab Q4HP PRN PO 07/27/24 23:30 07/28/24 12:02 1 TAB Ondansetron HCl 4 mg Q4HP PRN IV 07/27/24 23:30 Morphine Sulfate 2 mg Q4HPRN PRN IV 07/27/24 23:30 Enoxaparin Sodium 40 mg DAILY SC 07/28/24 10:00 07/28/24 10:01 40 MG Nitroglycerin 0.4 mg Q5MINP PRN SL 07/27/24 23:30 Morphine Sulfate 2 mg Q30M PRN IV 07/27/24 23:30 Atorvastatin Calcium 40 mg HS PO 07/28/24 22:00 Aspirin 81 mg DAILY PO 07/29/24 10:00 Pantoprazole Sodium 40 mg DAILY IV 07/28/24 10:00 07/28/24 10:00 40 MG Levalbuterol HCl 0.625 mg Q6HR NEB 07/28/24 06:00 07/28/24 11:18 0.625 MG Ipratropium [place] 0.5 mg Q6HWA NEB 07/28/24 06:00 07/28/24 11:18 0.5 MG Furosemide 20 mg BIDD IV 07/28/24 18:00 Examination Physical examination: General Appearance: Alert, Oriented X3, Cooperative, No acute distress HEENT: Atraumatic, PERRLA, EOMI, Mucous membrane moist/pink Respiratory: Bilateral wheezing and fine crackles. Cardiovascular: Regular rate, Normal S1, Normal S2, No murmurs, no chest wall tenderness Abdominal: Normal bowel sounds, Soft, No tenderness, No hepatospenomegaly, No masses Extremities: Bilateral pedal edema+, No clubbing, No cyanosis, Normal pulses, No tenderness/swelling Skin: No rashes, No breakdown, No significant lesion Neuro: Normal gait, Normal speech, Strength at 5/5 X4 ext, Normal tone, Sensation intact, grossly intact cranial nerves Psych/Mental Status: Mental status NL, Mood NL laboratory and microbiology Laboratory Tests 07/28/24 07:07 Test 07/28/24 07:07 Range/Units Serum Glucose 87 74-106 mg/dL Labs and/or images reviewed: Labs reviewed by me, Image(s) reviewed by me Problem List/Assessment/Plan Problem List/Assessment/Plan Assessment and plan: # Acute hypoxic respiratory failure likely due to acute on chronic possible diastolic heart failure # Possible acute on chronic exacerbation of COPD # NSTEMI likely type 2 due to above # SIRS positive - EKG revealed sinus rhythm, nonspecific ST-T changes and troponin trends were 76>67>77 - Pending echo - CXR revealed findings suggestive of emphysematous changes and pulmonary arterial hypertension. - BNP is elevated - IV Lasix 20 mg b.i.d. - IV methylprednisolone 40 mg daily - Medneb with levalbuterol and ipratropium q.6 hours - Doxycycline 100 mg p.o. b.i.d. - Aspirin 81 mg p.o. daily and atorvastatin 40 mg at HS - Cardiology evaluated the patient and recommended possible left heart catheterization for recurrent chest pain. # Macrocytosis likely due to alcoholism, rule out chronic liver disease # Transaminitis likely due to alcoholism - B12 and folates are normal and ultrasound of the liver revealed hepatic steatosis. # Hypokalemia and hypomagnesemia - Replenished # Dysphagia and wt loss, rule out GI malignancy # History of GERD - GI evaluated the patient and recommended barium swallow, FOBT and possible EGD after cardiac clearance. - Protonix 40 mg p.o. daily and Carafate 1 g p.o. b.i.d. DIET: Cardiac diet DVT PROPHYLAXIS: Lovenox GI PROPHYLAXIS:: Protonix CODE STATUS: Goal of care for more than 18 minutes, full code DISPOSITION: Telemetry Plan discussed with Dr. Ferro Plan discussed with: Patient, Other My Orders My Orders Orders - LORE SIMMONS RESIDENT Procedure Category Date Status Time Furosemide Injection PHA 07/28/24 In Process (Lasix Injection) 18:00 LIVER US 07/28/24 Resulted 11:32 Dietary Evaluation Review Recommendations by RD: Increase Calorie Intake, Protein Supplementation Comments: 1) Refer Speech Therapist x swallow evaluation 2) Consider cardiac diet 3) Ensure Enlive 240ml BID 4) Continue current plan of care Expected Outcomes/Goals: Pt will meet at least 75% estimated needs fu 3-5 days Interpretation of weight loss: up to 7.5% in 3 months Fluid Accumulation (Non Severe: Mild fluid retention Protein Calorie Malnutrition: Non-Severe Is there a minimum of two crit: Yes Date of Service: Jul 28, 2024 Billing Provider: DARIN MOONEY MD Common Visit Codes: [id number] INP/OBS CARE(HIGH) LORE SIMMONS RESIDENT Jul 28, 2024 14:14 DARIN MOONEY MD Aug 05, 2024 23:02
[2024-07-28] MEDS: PANTOPRAZOLE 40 MG TAB PO ONE (17:44)
[2024-07-28] MEDS: methylPREDNISolone SOD SUCC 40 MG/ML VL IV ONE (17:44)
[2024-07-28] MEDS: FUROSEMIDE 20 MG/2 ML VIAL IV SCH (17:53)
[2024-07-28] MEDS: DOXYCYCLINE 100 MG TAB/CAP PO SCH (21:21)
[2024-07-28] MEDS: SUCRALFATE 1 GM/10 ML ORAL SUSP PO SCH (21:21)
[2024-07-28] MEDS: ATORVASTATIN 20 MG TAB PO SCH (21:21)
[2024-07-29] VITALS (20 sets, daily range): BP systolic 112–140; BP diastolic 65–87; PULSE 66–114; RESP 12–20; TEMP 97.7–98.2; O2SAT 91–100
[2024-07-29] MEDS: PANTOPRAZOLE 40 MG TAB PO SCH (04:59)
[2024-07-29] MEDS: MORPHINE SULFATE INJ 2 MG/ml SYRG IV PRN (05:00)
[2024-07-29 06:18] LABS: Basophils # (auto) 0 10 ^3/uL (0-0.2); Eosinophils # (auto) 0 10 ^3/uL (0-0.8); Eosinophils % (auto) 0.1 % (0.0-7.0); Hemoglobin 12.3 g/dL (13.5-17.5); White Blood Cell 4.1 10^3/uL (4.4-10.8)
[2024-07-29 06:24] LABS: Basophils % (auto) 0.9 % (0.0-2.0); Hematocrit 35.7 % (41.0-53.0); Lymphocytes # (auto) 0.5 10 ^3/uL (0.4-5.4); Lymphocytes % (auto) 12.1 % (10.0-50.0); Mean Corpuscular Hemoglobin 34.5 pg (28.0-32.0); Mean Corpuscular Hgb Conc. 34.5 g/dL (32.0-36.0); Mean Corpuscular Volume 99.9 fL (80.0-100.0); Monocytes # (auto) 0.5 10 ^3/uL (0-1.3); Monocytes % (auto) 11.2 % (0.0-12.0); Neutrophils # (auto) 3.1 10 ^3/uL (1.6-8.6); Neutrophils % (auto) 75.7 % (37.0-80.0); Nucleated Red Blood Cells % 0.9 %; Platelet Count (auto) 220 10^3/uL (140-450); Red Blood Cells 3.57 10^6/uL (4.5-5.90); Red Cell Distribution Width 19.6 % (11.8-14.3)
[2024-07-29 06:31] LABS: INR 0.86 (0.9-1.15); Partial Thromboplastin Time 28.8 SEC (24.5-34.5); Prothrombin Time 9.3 sec (9.3-11.8)
[2024-07-29 06:43] LABS: Alkaline Phosphatase 92 U/L (46-116); Anion Gap 6 (5-15); BUN/Creatinine Ratio 8.5 (10.0-20.0); Carbon Dioxide 29 mmol/L (20-31); Chloride 104 mmol/L (98-107); Potassium 3.7 mmol/L (3.5-5.1); Sodium 139 mmol/L (136-145); Total Protein 5.8 g/dL (5.7-8.2)
[2024-07-29 06:44] LABS: Albumin 3.6 g/dL (3.2-4.8); Bilirubin, Total 0.6 mg/dL (0.2-1.0)
[2024-07-29] MEDS: MAGNESIUM OXIDE 400 MG TAB PO ONE (06:45)
[2024-07-29 06:46] LABS: Alanine Aminotransferase 46 U/L (7-40); Aspartate Aminotransferase 103 U/L (13-40); Blood Urea Nitrogen 6 mg/dL (9-23); Calcium 8.6 mg/dL (8.7-10.4); Glucose 140 mg/dL (74-106)
[2024-07-29] MEDS: MAGNESIUM OXIDE 400 MG TAB PO SCH (09:09)
[2024-07-29] MEDS: ASPirin 81 mg TAB PO SCH (09:09)
[2024-07-29] MEDS: methylPREDNISolone SOD SUCC 40 MG/ML VL IV SCH (09:10)
[2024-07-29] MEDS ORDERED: AZITHROMYCIN 500MG/ 250ML 250 ML IV SCH (10:00)
--- NOTE | 2024-07-29 10:19 | DVH ---
XY ESOPHAGUS GASTROGRAFIN SWALLOW, HISTORY: DYSPHAGIA COMPARISON: None PROCEDURE: A marketing sales supervisor radiograph was obtained prior to the procedure. Barium and effervescent granules were administered orally, and radiographs were obtained under intermittent fluoroscopic observation. Total fluoroscopic time was 0.7 minutes. FINDINGS: The esophagus was normal in caliber with no stricture, filling defect or wall irregularity demonstrat ed. Normal esophageal peristalsis was observed. IMPRESSION: Unremarkable esophogram.
[2024-07-29] MEDS: fentaNYL CITRATE 100 MCG/2 ML VL ONE (12:23)
[2024-07-29] MEDS: SODIUM CHL 0.9% 0 ML ONE (12:23)
[2024-07-29] MEDS: MIDAZOLAM HCL 2MG/2ML 2ml VIAL (1mg/ml) ONE (12:23)
[2024-07-29] MEDS: ANGIOMAX 250 MG VIAL IV ONE (12:23)
[2024-07-29] MEDS: LIDOCAINE 2%HCL (LOCAL ANESTH.) INJ 20ML MDV ONE (12:24)
[2024-07-29] MEDS: IOHEXOL 350 MG/ML 100ML IJ ONE (12:24)
--- NOTE | 2024-07-29 12:53 | DVHPN2 ---
Subjective Patient admits to no changes Left heart catheterization planned for today Changes from previous H/P or p: No Changes Objective Vitals Vital Signs Date Time Temp Pulse Resp B/P (MAP) Pulse Ox O2 Delivery O2 Flow Rate FiO2 07/29/24 09:00 97.7 114 17 133/77 (95) 97 97.7 07/29/24 08:05 Nasal Cannula* 2 28 Intake/Output Intake and Output 07/29/24 07:00 Intake Total 5380 ml Output Total 3 ml Balance 5377 ml Intake Oral 5280 ml IV Total 100 ml Output Urine Total 3 ml # Voids 20 General Appearance: Alert, Oriented X3, Cooperative, No acute distress, mild distress, moderate distress, severe distress, Other Lungs: Clear to auscultation, Normal air movement, Other Cardiovascular: Regular rate, Normal S1, Normal S2, No murmurs, Gallops, Rubs, Other Abdomen: Normal bowel sounds, Soft, No tenderness, No hepatospenomegaly, No masses, Other Medications Current Medications Medications Dose Ordered Sig/K[place] Route Start Time Stop Time Status Last Admin Dose Admin Acetaminophen 650 mg Q6HP PRN PO 07/27/24 23:30 Acetaminophen/ Hydrocodone Bitart 1 tab Q4HP PRN PO 07/27/24 23:30 07/29/24 00:17 1 TAB Ondansetron HCl 4 mg Q4HP PRN IV 07/27/24 23:30 Morphine Sulfate 2 mg Q4HPRN PRN IV 07/27/24 23:30 07/29/24 05:00 2 MG Enoxaparin Sodium 40 mg DAILY SC 07/28/24 10:00 07/29/24 09:09 40 MG Nitroglycerin 0.4 mg Q5MINP PRN SL 07/27/24 23:30 Morphine Sulfate 2 mg Q30M PRN IV 07/27/24 23:30 Atorvastatin Calcium 40 mg HS PO 07/28/24 22:00 07/28/24 21:21 40 MG Aspirin 81 mg DAILY PO 07/29/24 10:00 07/29/24 09:09 81 MG Levalbuterol HCl 0.625 mg Q6HR NEB 07/28/24 06:00 07/29/24 07:00 0.625 MG Ipratropium [place] 0.5 mg Q6HWA NEB 07/28/24 06:00 07/29/24 07:00 0.5 MG Furosemide 20 mg BIDD IV 07/28/24 18:00 07/29/24 04:59 20 MG Doxycycline Monohydrate 100 mg Q12HR PO 07/28/24 22:00 07/29/24 09:09 100 MG Methylprednisolone Sodium Succinate 40 mg DAILY IV 07/29/24 10:00 07/29/24 09:10 40 MG Sucralfate 1 gm BID@0600,2200 PO 07/28/24 22:00 07/29/24 04:59 1 GM Pantoprazole Sodium 40 mg DAILY@0600 PO 07/29/24 06:00 07/29/24 04:59 40 MG Magnesium Oxide 400 mg BID PO 07/29/24 10:00 07/29/24 09:09 400 MG Laboratory Results Laboratory Tests 07/29/24 05:28 Chemistry Test 07/28/24 18:08 07/29/24 05:28 Magnesium Level 1.5 mg/dL (1.6-2.6) L Albumin 3.6 g/dL (3.2-4.8) Calcium Level 8.6 mg/dL (8.7-10.4) L Total Protein 5.8 g/dL (5.7-8.2) Coagulation Test 07/29/24 05:28 Prothrombin Time 9.3 sec (9.3-11.8) Prothrombin Time INR 0.86 (0.9-1.15) L Activated Partial Thromboplast Time 28.8 SEC (24.5-34.5) LFT Test 07/29/24 05:28 Alanine Aminotransferase (ALT) 46 U/L (7-40) H Alkaline Phosphatase 92 U/L (46-116) Aspartate Amino Transferase (AST) 103 U/L (13-40) H Total Bilirubin 0.6 mg/dL (0.2-1.0) Urinalysis Test 07/28/24 11:15 Urine Color Yellow (Yellow) Urine Clarity Clear (Clear) Urine pH 6.0 (5.0-9.0) Urine Specific [place] 1.013 (1.001-1.035) Urine Protein Negative (Negative) Urine Ketones Trace (Negative) Urine Blood Negative /uL (Negative) Urine Nitrite Negative (Negative) Urine Bilirubin Negative (Negative) Urine Urobilinogen 4 mg/dL (Negative) H Urine Leukocyte Esterase Negative /uL (Negative) Urine RBC None seen /hpf (0 - 3) Urine Microscopic WBC < 1 /HPF (0-3) Urine Squamous Epithelial Cells Few /hpf (<5) Urine Bacteria None seen /hpf (None Seen) Urine Glucose Normal mg/dL (Normal) Microbiology Microbiology Date/Time Source Procedure Growth Status 07/28/24 05:00 Nose MRSA Screen - Final Complete Labs and/or images reviewed: Labs reviewed by me, Image(s) reviewed by me Assessment/Plan Assessment/Plan Dysphagia/odynophagia Abdominal pain History of GERD Possible GI bleed ? NSTEMI Weight loss Marijuana use Plan Discussed with Dr. Briscoe Discussed results of barium swallow shows unremarkable Possible plan for EGD with dilation if required, and if patient is cleared by Cardiology after cardiac workup, otherwise outpatient GI follow-up for elective procedures Plan discussed with: Patient, Other (RN) My Orders Orders - JACK DELA CRUZ Procedure Category Date Status Time Esophagus XY 07/29/24 Resulted Gastrografin Swallow 08:00 Date of Service: Jul 29, 2024 Billing Provider: JACK DELA CRUZ Common Visit Codes: [id number] INP/OBS CARE(HIGH) JACK DELA CRUZ Jul 29, 2024 12:53
--- NOTE | 2024-07-29 13:24 | DVHPN2 ---
Progress Note - Dictate Date Seen: Jul 29, 2024 Medical Necessity Reason Pt with a Central, PICC or Fol: No Subjective PT WITH CHEST PAIN TROPONIN NEGATIVE HX OF CHF COPD HTN MILD ANEMIA ELEVATED MCV HYPOKALEMIA vital signs Vital Sign Date Time Temp Pulse Resp B/P (MAP) Pulse Ox O2 Delivery O2 Flow Rate FiO2 07/29/24 09:00 97.7 114 17 133/77 (95) 97 97.7 07/29/24 08:05 Nasal Cannula* 2 28 Total Intake and Output 07/28/24 07/28/24 07/29/24 15:00 23:00 07:00 Intake Total 100 ml 1780 ml 3500 ml Output Total 3 ml Balance 100 ml 1777 ml 3500 ml medications Current Medications Medications Dose Ordered Sig/[place] Route Start Time Stop Time Status Last Admin Dose Admin Acetaminophen 650 mg Q6HP PRN PO 07/27/24 23:30 Acetaminophen/ Hydrocodone Bitart 1 tab Q4HP PRN PO 07/27/24 23:30 07/29/24 00:17 1 TAB Ondansetron HCl 4 mg Q4HP PRN IV 07/27/24 23:30 Morphine Sulfate 2 mg Q4HPRN PRN IV 07/27/24 23:30 07/29/24 05:00 2 MG Enoxaparin Sodium 40 mg DAILY SC 07/28/24 10:00 07/29/24 09:09 40 MG Nitroglycerin 0.4 mg Q5MINP PRN SL 07/27/24 23:30 Morphine Sulfate 2 mg Q30M PRN IV 07/27/24 23:30 Atorvastatin Calcium 40 mg HS PO 07/28/24 22:00 07/28/24 21:21 40 MG Aspirin 81 mg DAILY PO 07/29/24 10:00 07/29/24 09:09 81 MG Levalbuterol HCl 0.625 mg Q6HR NEB 07/28/24 06:00 07/29/24 07:00 0.625 MG Ipratropium [place] 0.5 mg Q6HWA NEB 07/28/24 06:00 07/29/24 07:00 0.5 MG Furosemide 20 mg BIDD IV 07/28/24 18:00 07/29/24 04:59 20 MG Doxycycline Monohydrate 100 mg Q12HR PO 07/28/24 22:00 07/29/24 09:09 100 MG Methylprednisolone Sodium Succinate 40 mg DAILY IV 07/29/24 10:00 07/29/24 09:10 40 MG Sucralfate 1 gm BID@0600,2200 PO 07/28/24 22:00 07/29/24 04:59 1 GM Pantoprazole Sodium 40 mg DAILY@0600 PO 07/29/24 06:00 07/29/24 04:59 40 MG Magnesium Oxide 400 mg BID PO 07/29/24 10:00 07/29/24 09:09 400 MG laboratory and microbiology Laboratory Tests 07/29/24 05:28 Test 07/29/24 05:28 Range/Units Serum Glucose 140 H 74-106 mg/dL Problem List CHEST PAIN TROPONIN NEGATIVE HX OF CHF COPD HTN MILD ANEMIA ELEVATED MCV HYPOKALEMIA Assessment/Plan WILL CONSIDER LHC SINCE PT WITH RECURRENT CP STRESS CARDIOLITE ON 03/30/24 SHOWS NORMAL PERFUSION LHC NORMAL CORONARIES EF 30% Dietary Evaluation Review Recommendations by RD: Increase Calorie Intake, Protein Supplementation Comments: 1) Refer Speech Therapist x swallow evaluation 2) Consider cardiac diet 3) Ensure Enlive 240ml BID 4) Continue current plan of care Expected Outcomes/Goals: Pt will meet at least 75% estimated needs fu 3-5 days Interpretation of weight loss: up to 7.5% in 3 months Fluid Accumulation (Non Severe: Mild fluid retention Protein Calorie Malnutrition: Non-Severe Is there a minimum of two crit: Yes Plan discussed with: Patient ADEN SMILEY MD Jul 29, 2024 13:24
--- NOTE | 2024-07-29 13:26 | DVHOP ---
DATE OF SURGERY: 07/29/2024 The patient having recurrent chest pain for the last two weeks. Trops have been negative at this time but because of ongoing chest pain, the patient has been admitted to the hospital on numerous occasions. Stress test was done approximately six months ago which was negative. Echocardiogram shows diminished left ventricular ejection fraction however. Now, the patient is having increasing symptoms of chest pain with heart failure with reduced ejection fraction. The patient is now to undergo: * Left heart catheterization. * Conscious sedation to be given as well. * Right iliac angiography. PROCEDURE: The patient was prepped and draped under sterile condition. Xylocaine 1% was used to anesthetize the right groin. Using Cook needle, right femoral artery was engaged with Seldinger technique. A 6-Macedonian sheath in the right femoral artery. Using 6-Macedonian JL4 catheter and 6-Macedonian JR4 catheter, selective left and right coronary angiographies were performed. Using 6-Macedonian pigtail catheter, ventriculogram was done. Total contrast used was 40 mL Optiray. Total fluoro time was 1 minute. RESULTS: * Left main patent. * Left anterior descending artery was patent. * Circumflex was patent. * Right coronary artery was patent with codominant system. * Left ventricular function showed global hypokinesis with an estimated EF of 30%-35% with LVEDP of 10 mmHg with no gradient across the aortic valve. Thus, the patient with dilated cardiomyopathy, heart failure with reduced ejection fraction. Coronary anatomy was within normal limits. At this time, the patient's chest pain is not cardiac in nature. The patient needs to be adequately treated for systolic dysfunction. We will continue to follow the patient. Constantine Padilla MD SA/RICH TID: [id number] RECEIPT: [id number]
--- NOTE | 2024-07-29 15:48 | DVHSR ---
APPROVED REPORT EXAM: Two-dimensional and M-mode echocardiogram with Doppler and color Doppler. Blood Pressure: 122/67 mmHg INDICATION Chest Pain RISK FACTORS Height: 6'1", Weight: 165 DIMENSIONS LVDd5.3 (3.8-5.7cm)LA (2D)3.5 (1.9-4.0cm)Aortic Root3.4 (2.0-3.7cm) LVDs3.8 (2.5-4.0cm)LA (MM) (1.9-4.0cm)Aortic Cusp Exc1.9 (1.5-2.0cm) EF (%) 55.0 (55-70%)Rt. Atrium4.8 (1.9-4.0cm)Asc. Aorta3.5 cm IVSd0.8 (0.7-1.1cm)RV (D)4.9 (1.8-2.4cm) PWd1.1 (0.7-1.1cm) Mitral Valve MitralMitral Stenosis E wave0.51m/sMV Mean GR.mmHg A wave0.68m/sMV Peak GR.mmHg E/A ratio0.82D MVAcm2 DECEL [id number] 1/2 Timems Aortic Valve Aortic ValveAortic Stenosis LVOT Diameter2.5 (1.8-2.4cm)Doppler AVAcm2 2D AVA3.38cm2 Pulmonic Valve V20.96m/s Tricuspid Valve TR Velocity2.72m/s [id number] Other Information Quality : Technically LimitedRhythm : Technically limited study due to patient position. Conclusion Sinus rhythm. Mild LV enlargement. Mild aortic root enlargement. Concentric LVH. Valves are normal. EF of 60% with normal RV function. Dopplers unremarkable. No pericardial effusion masses or vegetations.
--- NOTE | 2024-07-29 15:57 | DVHPNRES ---
Progress Note Date Seen: Jul 29, 2024 Resident Creating Document: LORE SIMMONS RESIDENT Medical Necessity Reason Pt with a Central, PICC or Fol: No Subjective Review of Systems Patient was seen and examined on the bedside. Is alert oriented x3 and on room air. Patient underwent left heart catheterization today and revealed normal coronary arteries and dilated cardiomyopathy with ejection fraction 30%. Started GDMT as tolerated and we will up titrate according to the response of the blood pressure. Objective vital signs Vital Sign Date Time Temp Pulse Resp B/P (MAP) Pulse Ox O2 Delivery O2 Flow Rate FiO2 07/29/24 14:37 97.8 86 17 127/86 (100) 98 97.8 07/29/24 08:05 Nasal Cannula* 2 28 Total Intake and Output 07/28/24 07/28/24 07/29/24 15:00 23:00 07:00 Intake Total 100 ml 1780 ml 3500 ml Output Total 3 ml Balance 100 ml 1777 ml 3500 ml medications Current Medications Medications Dose Ordered Sig/Kalia Route Start Time Stop Time Status Last Admin Dose Admin Acetaminophen 650 mg Q6HP PRN PO 07/27/24 23:30 Acetaminophen/ Hydrocodone Bitart 1 tab Q4HP PRN PO 07/27/24 23:30 07/29/24 00:17 1 TAB Ondansetron HCl 4 mg Q4HP PRN IV 07/27/24 23:30 Morphine Sulfate 2 mg Q4HPRN PRN IV 07/27/24 23:30 07/29/24 05:00 2 MG Enoxaparin Sodium 40 mg DAILY SC 07/28/24 10:00 07/29/24 09:09 40 MG Nitroglycerin 0.4 mg Q5MINP PRN SL 07/27/24 23:30 Morphine Sulfate 2 mg Q30M PRN IV 07/27/24 23:30 Atorvastatin Calcium 40 mg HS PO 07/28/24 22:00 07/28/24 21:21 40 MG Aspirin 81 mg DAILY PO 07/29/24 10:00 07/29/24 09:09 81 MG Levalbuterol HCl 0.625 mg Q6HR NEB 07/28/24 06:00 07/29/24 07:00 0.625 MG Ipratropium [place] 0.5 mg Q6HWA NEB 07/28/24 06:00 07/29/24 07:00 0.5 MG Doxycycline Monohydrate 100 mg Q12HR PO 07/28/24 22:00 07/29/24 09:09 100 MG Methylprednisolone Sodium Succinate 40 mg DAILY IV 07/29/24 10:00 07/29/24 09:10 40 MG Sucralfate 1 gm BID@0600,2200 PO 07/28/24 22:00 07/29/24 04:59 1 GM Pantoprazole Sodium 40 mg DAILY@0600 PO 07/29/24 06:00 07/29/24 04:59 40 MG Magnesium Oxide 400 mg BID PO 07/29/24 10:00 07/29/24 09:09 400 MG Furosemide 20 mg DAILY IV 07/29/24 14:45 Metoprolol Succinate 25 mg DAILY PO 07/30/24 10:00 Losartan Potassium 25 mg DAILY PO 07/30/24 10:00 Spironolactone 25 mg DAILY PO 07/30/24 10:00 Examination Physical examination: General Appearance: Alert, Oriented X3, Cooperative, No acute distress HEENT: Atraumatic, PERRLA, EOMI, Mucous membrane moist/pink Respiratory: Mild scattered wheezes. Cardiovascular: Regular rate, Normal S1, Normal S2, No murmurs, no chest wall tenderness Abdominal: Normal bowel sounds, Soft, No tenderness, No hepatospenomegaly, No masses Extremities: No clubbing, No cyanosis, No edema, Normal pulses, No tenderness/swelling Skin: No rashes, No breakdown, No significant lesion Neuro: Normal gait, Normal speech, Strength at 5/5 X4 ext, Normal tone, Sensation intact, Cranial nerves 3-12 NL, Reflexes 2+ Psych/Mental Status: Mental status NL, Mood NL laboratory and microbiology Laboratory Tests 07/29/24 05:28 Test 07/29/24 05:28 Range/Units Serum Glucose 140 H 74-106 mg/dL Microbiology Date/Time Source Procedure Growth Status 07/28/24 05:00 Nose MRSA Screen - Final Complete Labs and/or images reviewed: Labs reviewed by me, Image(s) reviewed by me Problem List/Assessment/Plan Problem List/Assessment/Plan Assessment and plan: # Acute hypoxic respiratory failure likely due to acute on chronic possible diastolic heart failure # Possible acute on chronic exacerbation of COPD # NSTEMI likely type 2 due to above # SIRS positive - EKG revealed sinus rhythm, nonspecific ST-T changes and troponin trends were 76>67>77 - Pending echo - CXR revealed findings suggestive of emphysematous changes and pulmonary arterial hypertension. - BNP is elevated - IV Lasix 20 mg b.i.d. - IV methylprednisolone 40 mg daily - Medneb with levalbuterol and ipratropium q.6 hours - Doxycycline 100 mg p.o. b.i.d. - Aspirin 81 mg p.o. daily and atorvastatin 40 mg at HS - Patient underwent left heart catheterization Saturday and revealed normal coronary arteries and dilated cardiomyopathy with ejection fraction 30% - Started GDMT as tolerated and we will up titrate according to the response of the blood pressure # Macrocytosis likely due to alcoholism, rule out chronic liver disease # Transaminitis likely due to alcoholism - B12 and folates are normal and ultrasound of the liver revealed hepatic steatosis. # Hypokalemia and hypomagnesemia - Replenished # Dysphagia and wt loss, rule out GI malignancy # History of GERD - Protonix 40 mg p.o. daily and Carafate 1 g p.o. b.i.d. - Barium swallow revealed normal study and FOBT was negative - GI recommended EGD with possible dilatation after cardiac clearance or outpatient elective endoscopy. DIET: Cardiac diet DVT PROPHYLAXIS: Lovenox GI PROPHYLAXIS:: Protonix CODE STATUS: Goal of care for more than 18 minutes, full code DISPOSITION: Telemetry Plan discussed with Dr. Ferro Plan discussed with: Patient, Other My Orders My Orders Orders - LORE SIMMONS RESIDENT Procedure Category Date Status Time Magnesium Oxide PHA 07/29/24 In Process Tablet (Mag-Ox Tablet) 10:00 Furosemide Injection PHA 07/29/24 In Process (Lasix Injection) 14:45 Metoprolol Xl PHA 07/30/24 In Process Succinate (Toprol Xl) 10:00 Losartan Tablet PHA 07/30/24 In Process (Cozaar Tablet) 10:00 Spironolactone PHA 07/30/24 In Process (Aldactone) 10:00 Dietary Evaluation Review Recommendations by RD: Increase Calorie Intake, Protein Supplementation Comments: 1) Refer Speech Therapist x swallow evaluation 2) Consider cardiac diet 3) Ensure Enlive 240ml BID 4) Continue current plan of care Expected Outcomes/Goals: Pt will meet at least 75% estimated needs fu 3-5 days Interpretation of weight loss: up to 7.5% in 3 months Fluid Accumulation (Non Severe: Mild fluid retention Protein Calorie Malnutrition: Non-Severe Is there a minimum of two crit: Yes Date of Service: Jul 29, 2024 Billing Provider: DARIN MOONEY MD Common Visit Codes: [id number] INP/OBS CARE(HIGH) DELORES SIMMONSRA RESIDENT Jul 29, 2024 15:57 DARIN MOONEY MD Aug 05, 2024 23:20
[2024-07-29] MEDS: LOSARTAN POTASSIUM 25 MG TAB PO ONE (16:20)
[2024-07-29] MEDS: FUROSEMIDE 20 MG/2 ML VIAL IV SCH (16:20)
[2024-07-29] MEDS: METOPROLOL SUCCINATE XL 50 MG TAB PO ONE (16:21)
[2024-07-29] MEDS: MAGNESIUM SULFATE 1GM/100ML 100 ML IV ONE ×2 (16:25→18:27)
[2024-07-29] MEDS: NICOTINE 21MG/24 HR TOPICAL PATCH TD ONE (18:26)
--- NOTE | 2024-07-29 19:03 | DVHPN2 ---
Progress Note - Dictate Date Seen: Jul 29, 2024 Medical Necessity Reason Pt with a Central, PICC or Fol: No Subjective No new complaints Patient underwent angiogram today which was negative except for mild cardiomyopathy vital signs Vital Sign Date Time Temp Pulse Resp B/P (MAP) Pulse Ox O2 Delivery O2 Flow Rate FiO2 07/29/24 16:36 97.9 101 19 140/87 (104) 92 97.9 07/29/24 08:05 Nasal Cannula* 2 28 Total Intake and Output 07/28/24 07/28/24 07/29/24 15:00 23:00 07:00 Intake Total 100 ml 1780 ml 3500 ml Output Total 3 ml Balance 100 ml 1777 ml 3500 ml medications Current Medications Medications Dose Ordered Sig/Kalia Route Start Time Stop Time Status Last Admin Dose Admin Acetaminophen 650 mg Q6HP PRN PO 07/27/24 23:30 Acetaminophen/ Hydrocodone Bitart 1 tab Q4HP PRN PO 07/27/24 23:30 07/29/24 00:17 1 TAB Ondansetron HCl 4 mg Q4HP PRN IV 07/27/24 23:30 Morphine Sulfate 2 mg Q4HPRN PRN IV 07/27/24 23:30 07/29/24 05:00 2 MG Enoxaparin Sodium 40 mg DAILY SC 07/28/24 10:00 07/29/24 09:09 40 MG Nitroglycerin 0.4 mg Q5MINP PRN SL 07/27/24 23:30 Morphine Sulfate 2 mg Q30M PRN IV 07/27/24 23:30 Atorvastatin Calcium 40 mg HS PO 07/28/24 22:00 07/28/24 21:21 40 MG Aspirin 81 mg DAILY PO 07/29/24 10:00 07/29/24 09:09 81 MG Levalbuterol HCl 0.625 mg Q6HR NEB 07/28/24 06:00 07/29/24 07:00 0.625 MG Ipratropium [place] 0.5 mg Q6HWA NEB 07/28/24 06:00 07/29/24 07:00 0.5 MG Doxycycline Monohydrate 100 mg Q12HR PO 07/28/24 22:00 07/29/24 09:09 100 MG Methylprednisolone Sodium Succinate 40 mg DAILY IV 07/29/24 10:00 07/29/24 09:10 40 MG Sucralfate 1 gm BID@0600,2200 PO 07/28/24 22:00 07/29/24 04:59 1 GM Pantoprazole Sodium 40 mg DAILY@0600 PO 07/29/24 06:00 07/29/24 04:59 40 MG Magnesium Oxide 400 mg BID PO 07/29/24 10:00 07/29/24 09:09 400 MG Furosemide 20 mg DAILY IV 07/29/24 14:45 07/29/24 16:20 20 MG Metoprolol Succinate 25 mg DAILY PO 07/30/24 10:00 Losartan Potassium 25 mg DAILY PO 07/30/24 10:00 Spironolactone 25 mg DAILY PO 07/30/24 10:00 Nicotine 1 patch DAILY@1800 TD 07/30/24 18:00 objective General Appearance: Alert, Oriented X3, Cooperative, No acute distress, ambulatory Lungs: Clear to auscultation, Normal air movement, Other Cardiovascular: Regular rate, Normal S1, Normal S2, No murmurs, Gallops, Rubs, Other Abdomen: Normal bowel sounds, Soft, No tenderness, No hepatospenomegaly, No masses, laboratory and microbiology Laboratory Tests 07/29/24 05:28 Test 07/29/24 05:28 Range/Units Serum Glucose 140 H 74-106 mg/dL Problems(with codes): (1) Dysphagia (2) Acute chest pain (3) Shortness of breath (4) Odynophagia Prognosis Plan Patient will be scheduled for a EGD on 07/30/2024 Discussed with patient and nurse Dietary Evaluation Review Recommendations by RD: Increase Calorie Intake, Protein Supplementation Comments: 1) Refer Speech Therapist x swallow evaluation 2) Consider cardiac diet 3) Ensure Enlive 240ml BID 4) Continue current plan of care Expected Outcomes/Goals: Pt will meet at least 75% estimated needs fu 3-5 days Interpretation of weight loss: up to 7.5% in 3 months Fluid Accumulation (Non Severe: Mild fluid retention Protein Calorie Malnutrition: Non-Severe Is there a minimum of two crit: Yes Plan discussed with: Patient MIRNA WOODARD MD Jul 29, 2024 19:03
[2024-07-30] VITALS (17 sets, daily range): BP systolic 118–136; BP diastolic 79–93; PULSE 73–106; RESP 15–20; TEMP 36.7; O2SAT 90–100
--- NOTE | 2024-07-30 09:47 | DVHPN2 ---
Progress Note - Dictate Date Seen: Jul 30, 2024 Medical Necessity Reason Pt with a Central, PICC or Fol: No Subjective PT WITH CHEST PAIN TROPONIN NEGATIVE HX OF CHF COPD HTN MILD ANEMIA ELEVATED MCV HYPOKALEMIA vital signs Vital Sign Date Time Temp Pulse Resp B/P (MAP) Pulse Ox O2 Delivery O2 Flow Rate FiO2 07/30/24 08:31 98.1 79 15 129/92 (104) 90 98.1 07/30/24 08:10 Nasal Cannula* 2 28 Total Intake and Output 07/29/24 07/29/24 07/30/24 15:00 23:00 07:00 Intake Total 1394 ml 600 ml Balance 1394 ml 600 ml medications Current Medications Medications Dose Ordered Sig/Kalia Route Start Time Stop Time Status Last Admin Dose Admin Acetaminophen 650 mg Q6HP PRN PO 07/27/24 23:30 Acetaminophen/ Hydrocodone Bitart 1 tab Q4HP PRN PO 07/27/24 23:30 07/29/24 20:30 1 TAB Ondansetron HCl 4 mg Q4HP PRN IV 07/27/24 23:30 Morphine Sulfate 2 mg Q4HPRN PRN IV 07/27/24 23:30 07/30/24 05:33 2 MG Enoxaparin Sodium 40 mg DAILY SC 07/28/24 10:00 07/29/24 09:09 40 MG Nitroglycerin 0.4 mg Q5MINP PRN SL 07/27/24 23:30 Morphine Sulfate 2 mg Q30M PRN IV 07/27/24 23:30 Atorvastatin Calcium 40 mg HS PO 07/28/24 22:00 07/29/24 21:30 40 MG Aspirin 81 mg DAILY PO 07/29/24 10:00 07/29/24 09:09 81 MG Levalbuterol HCl 0.625 mg Q6HR NEB 07/28/24 06:00 07/30/24 06:35 0.625 MG Ipratropium [place] 0.5 mg Q6HWA NEB 07/28/24 06:00 07/30/24 06:35 0.5 MG Doxycycline Monohydrate 100 mg Q12HR PO 07/28/24 22:00 07/29/24 21:30 100 MG Methylprednisolone Sodium Succinate 40 mg DAILY IV 07/29/24 10:00 07/29/24 09:10 40 MG Sucralfate 1 gm BID@0600,2200 PO 07/28/24 22:00 07/30/24 05:29 1 GM Pantoprazole Sodium 40 mg DAILY@0600 PO 07/29/24 06:00 07/30/24 05:29 40 MG Magnesium Oxide 400 mg BID PO 07/29/24 10:00 07/29/24 21:30 400 MG Furosemide 20 mg DAILY IV 07/29/24 14:45 07/29/24 16:20 20 MG Metoprolol Succinate 25 mg DAILY PO 07/30/24 10:00 Losartan Potassium 25 mg DAILY PO 07/30/24 10:00 Spironolactone 25 mg DAILY PO 07/30/24 10:00 Nicotine 1 patch DAILY@1800 TD 07/30/24 18:00 laboratory and microbiology Laboratory Tests 07/29/24 05:28 Test 07/29/24 05:28 Range/Units Serum Glucose 140 H 74-106 mg/dL Problem List CHEST PAIN TROPONIN NEGATIVE HX OF CHF COPD HTN MILD ANEMIA ELEVATED MCV HYPOKALEMIA Assessment/Plan WILL CONSIDER LHC SINCE PT WITH RECURRENT CP STRESS CARDIOLITE ON 03/30/24 SHOWS NORMAL PERFUSION LHC NORMAL CORONARIES EF 30% ? MYOCARDITIS NORMAL CORONARIES EF HAS DROPPED FROM 60% TO 35% Dietary Evaluation Review Recommendations by RD: Increase Calorie Intake, Protein Supplementation Comments: 1) Refer Speech Therapist x swallow evaluation 2) Consider cardiac diet 3) Ensure Enlive 240ml BID 4) Continue current plan of care Expected Outcomes/Goals: Pt will meet at least 75% estimated needs fu 3-5 days Interpretation of weight loss: up to 7.5% in 3 months Fluid Accumulation (Non Severe: Mild fluid retention Protein Calorie Malnutrition: Non-Severe Is there a minimum of two crit: Yes Plan discussed with: Patient ADEN SMILEY MD Jul 30, 2024 09:47
[2024-07-30] MEDS: LOSARTAN POTASSIUM 25 MG TAB PO SCH (10:02)
[2024-07-30] MEDS: SPIRONOLACTONE 25 MG TAB PO SCH (10:02)
[2024-07-30] MEDS: METOPROLOL SUCCINATE XL 50 MG TAB PO SCH (10:03)
[2024-07-30] MEDS: EZ-GAS II GRANULES (RADIOLOGY USE) PO ONE (12:01)
[2024-07-30] MEDS: GASTROGRAFIN 120 ML SOL ONE (12:01)
[2024-07-30] MEDS ORDERED: PROPOFOL 10 MG/ML 20 ML IV ONE (13:57)
[2024-07-30] MEDS ORDERED: fentaNYL CITRATE 100 MCG/2 ML VL ONE (13:57)
[2024-07-30] MEDS: NICOTINE 21MG/24 HR TOPICAL PATCH TD SCH (17:37)
[2024-07-30] MEDS ORDERED: EMPA1TAB PO (19:09)
[2024-07-30] MEDS ORDERED: SPIR25TA8 PO (19:09)
[2024-07-30] MEDS ORDERED: METH4PAK PO (19:09)
[2024-07-30] MEDS ORDERED: LOSA-533 PO (19:09)
[2024-07-30] MEDS ORDERED: PANT40TA2 PO (19:09)
[2024-07-30] MEDS ORDERED: FURO1TAB33 PO (19:09)
[2024-07-30] MEDS ORDERED: DAPA1TAB4 PO (19:09)
[2024-07-30] MEDS ORDERED: METO25TA93 PO (19:09)
[2024-07-30] MEDS ORDERED: SUCR1SUS5 PO (19:09)
[2024-07-30] MEDS ORDERED: ASPI81CH59 PO (19:09)
--- NOTE | 2024-07-30 19:43 | DVHDSRES ---
Discharge Summary Date of Admission Resident Creating Document: LORE SIMMONS RESIDENT Jul 27, 2024 at 23:16 Date of Discharge: Jul 30, 2024 Admitting Diagnosis Acute hypoxic respiratory failure likely due to exacerbation of CHF Wounds: No wound was present Labs/Diagnostic Data: Laboratory Results Test 07/30/24 13:09 07/29/24 05:28 07/28/24 17:00 07/28/24 11:15 Magnesium Level 1.5 mg/dL (1.6-2.6) White Blood Count 4.1 10^3/uL (4.4-10.8) Red Blood Count 3.57 10^6/uL (4.5-5.90) Hemoglobin 12.3 g/dL (13.5-17.5) Hematocrit 35.7 % (41.0-53.0) Mean Corpuscular Volume 99.9 fL (80.0-100.0) Mean Corpuscular Hemoglobin 34.5 pg (28.0-32.0) Mean Corpuscular Hemoglobin Concent 34.5 g/dL (32.0-36.0) Red Cell Distribution Width 19.6 % (11.8-14.3) Platelet Count 220 10^3/uL (140-450) Mean Platelet Volume 8.2 fL (6.9-10.8) Neutrophils (%) (Auto) 75.7 % (37.0-80.0) Lymphocytes (%) (Auto) 12.1 % (10.0-50.0) Monocytes (%) (Auto) 11.2 % (0.0-12.0) Eosinophils (%) (Auto) 0.1 % (0.0-7.0) Basophils (%) (Auto) 0.9 % (0.0-2.0) Neutrophils # (Auto) 3.1 10 ^3/uL (1.6-8.6) Lymphocytes # (Auto) 0.5 10 ^3/uL (0.4-5.4) Monocytes # (Auto) 0.5 10 ^3/uL (0-1.3) Eosinophils # (Auto) 0 10 ^3/uL (0-0.8) Basophils # (Auto) 0 10 ^3/uL (0-0.2) Nucleated Red Blood Cells 0.9 % Prothrombin Time 9.3 sec (9.3-11.8) Prothrombin Time INR 0.86 (0.9-1.15) Activated Partial Thromboplast Time 28.8 SEC (24.5-34.5) Sodium Level 139 mmol/L (136-145) Potassium Level 3.7 mmol/L (3.5-5.1) Chloride Level 104 mmol/L (98-107) Carbon Dioxide Level 29 mmol/L (20-31) Anion Gap 6 (5-15) Blood Urea Nitrogen 6 mg/dL (9-23) Creatinine 0.71 mg/dL (0.700-1.30) Glomerular Filtration Rate Calc 106 mL/min (>90) BUN/Creatinine Ratio 8.5 (10.0-20.0) Serum Glucose 140 mg/dL (74-106) Calcium Level 8.6 mg/dL (8.7-10.4) Total Bilirubin 0.6 mg/dL (0.2-1.0) Aspartate Amino Transferase (AST) 103 U/L (13-40) Alanine Aminotransferase (ALT) 46 U/L (7-40) Alkaline Phosphatase 92 U/L (46-116) Total Protein 5.8 g/dL (5.7-8.2) Albumin 3.6 g/dL (3.2-4.8) Stool Occult Blood Negative (Negative) Stool Occult Blood Sample #3 (Negative) Urine Color Yellow (Yellow) Urine Clarity Clear (Clear) Urine pH 6.0 (5.0-9.0) Urine Specific [place] 1.013 (1.001-1.035) Urine Protein Negative (Negative) Urine Ketones Trace (Negative) Urine Blood Negative /uL (Negative) Urine Nitrite Negative (Negative) Urine Bilirubin Negative (Negative) Urine Urobilinogen 4 mg/dL (Negative) Urine Leukocyte Esterase Negative /uL (Negative) Urine RBC None seen /hpf (0 - 3) Urine Microscopic WBC < 1 /HPF (0-3) Urine Squamous Epithelial Cells Few /hpf (<5) Urine Bacteria None seen /hpf (None Seen) Urine Glucose Normal mg/dL (Normal) Urine Opiates Screen Neg (NEGATIVE) Urine Fentanyl Screen Neg (NEGATIVE) Urine Barbiturates Screen Neg (NEGATIVE) Urine Phencyclidine Screen Neg (NEGATIVE) Urine Amphetamines Screen Neg (NEGATIVE) Urine Benzodiazepines Screen Neg (NEGATIVE) Urine Cocaine Screen Neg (NEGATIVE) Urine Cannabinoids Screen Pos (NEGATIVE) Test 07/28/24 10:08 07/28/24 07:07 07/28/24 06:15 07/28/24 05:00 Vitamin B12 Level 496 pg/mL (211-911) Folic Acid 5.84 ng/mL (>5.38) Lactic Acid Level 2.0 mmol/L (0.4-2.0) Thyroid Stimulating Hormone (TSH) 1.56 uIU/mL (0.55-4.78) Influenza Type A Antigen Negative (Negative) Influenza Type B Antigen Negative (Negative) SARS-CoV-2 Antigen (Rapid) Negative (NEGATIVE) Test 07/27/24 23:44 07/27/24 20:30 Troponin I High Sensitivity 77 ng/L (</=54) Triglycerides Level 74 mg/dL (< 150) Cholesterol Level 191 mg/dL (< 200) LDL Cholesterol 48 mg/dL (< 100) HDL Cholesterol 117 mg/dL (40-59) Hemoglobin A1c 5.0 % A1C (<5.7) B-Type Natriuretic Peptide 491.21 pg/mL (0-100) Vitamin D 25-Hydroxy 10.1 ng/mL (30.0-100) Free Thyroxine (T4) Calculated 1.02 ng/dL (0.89-1.76) Other Laboratory Tests 07/29/24 05:28 Brief Hx & Hospital Course: This is a 58 year old male with past medical history of CHF, COPD, GERD presented to the ED with a complaint of chest pain for last 3 days prior to this admission. According to the patient he has intermittent chest pain for last 2 years but since last 3 days is getting worse, localized in the left side, pressure-like, constant, 10/10 with no clear exacerbating or relieving factor but gets relieved by taking [place]. He also reports cough, shortness of breath, dysphagia, odynophagia, alternating bowel movement, decreased oral intake unintentional weight loss of 15 lb within last year and generalized weakness. He denies fever, dysuria, or any recent sick contact and travel history. Hospital course: EKG revealed sinus rhythm, nonspecific ST-T changes and troponin trends were 76>67>77, BNP was elevated. Echo ejection fraction 60% with normal RV function. patient underwent left heart catheterization and revealed EF of 30% dilated cardiomyopathy and normal coronary arteries. CXR revealed findings suggestive of emphysematous changes and pulmonary arterial hypertension. Patient was treated with IV Lasix 20 mg b.i.d., IV methylprednisolone 40 mg daily, med neb with levalbuterol and ipratropium q.6 hours, doxycycline 100 mg p.o. b.i.d., aspirin 81 mg p.o. daily and atorvastatin 40 mg at HS. GDMT was started with losartan 25 mg p.o. daily, metoprolol succinate XL 25 mg daily, spironolactone 25 mg daily. GI was on board and recommended barium swallow swallow for dysphagia/odynophagia. Barium swallow revealed normal study and patient underwent EGD today. Discharge plan was discussed with the patient and all questions were answered. Patient is being discharged to home. Physical examination: General Appearance: Alert, Oriented X3, Cooperative, No acute distress HEENT: Atraumatic, PERRLA, EOMI, Mucous membrane moist/pink Respiratory: Clear to auscultation, Normal air movement Cardiovascular: Regular rate, Normal S1, Normal S2, No murmurs, no chest wall tenderness Abdominal: Normal bowel sounds, Soft, No tenderness, No hepatospenomegaly, No masses Extremities: No clubbing, No cyanosis, No edema, Normal pulses, No tenderness/swelling Skin: No rashes, No breakdown, No significant lesion Neuro: Normal gait, Normal speech, Strength at 5/5 X4 ext, Normal tone, Sensation intact, Cranial nerves 3-12 NL, Reflexes 2+ Psych/Mental Status: Mental status NL, Mood NL Discharge diagnosis: # Acute hypoxic respiratory failure likely due to acute on chronic possible diastolic heart failure # Possible acute on chronic exacerbation of COPD # NSTEMI likely type 2 due to above # SIRS positive # Macrocytosis likely due to alcoholism, ruled out chronic liver disease # Transaminitis likely due to alcoholism # Hypokalemia and hypomagnesemia # Dysphagia, s/p EGD # History of GERD Discharge plan: Disposition: Home Medications: Losartan 25 mg p.o. daily, metoprolol succinate XL 25 mg daily, spironolactone 25 mg daily, Jardiance 10 mg daily, Protonix 40 mg daily, Carafate 1 g b.i.d., aspirin 81 mg daily. Follow up : [facility] in 1 week Outpatient Gastroenterology in 4-6 weeks to discuss the biopsy report Cardiology in 1-2 weeks Consults/Reason for consult Cardiology and GI were consulted Operations or Procedures XY ESOPHAGUS GASTROGRAFIN SWALLOW, HISTORY: DYSPHAGIA COMPARISON: None PROCEDURE: A box gluer radiograph was obtained prior to the procedure. Barium and effervescent granules were administered orally, and radiographs were obtained under intermittent fluoroscopic observation. Total fluoroscopic time was 0.7 minutes. FINDINGS: The esophagus was normal in caliber with no stricture, filling defect or wall irregularity demonstrated. Normal esophageal peristalsis was observed. IMPRESSION: Unremarkable esophogram. DATE OF SURGERY: 07/29/2024 The patient having recurrent chest pain for the last two weeks. Trops have been negative at this time but because of ongoing chest pain, the patient has been admitted to the hospital on numerous occasions. Stress test was done approximately six months ago which was negative. Echocardiogram shows diminished left ventricular ejection fraction however. Now, the patient is having increasing symptoms of chest pain with heart failure with reduced ejection fraction. The patient is now to undergo: * Left heart catheterization. * Conscious sedation to be given as well. * Right iliac angiography. PROCEDURE: The patient was prepped and draped under sterile condition. Xylocaine 1% was used to anesthetize the right groin. Using Cook needle, right femoral artery was engaged with Seldinger technique. A 6-[place] sheath in the right femoral artery. Using 6-[place] JL4 catheter and 6-[place] JR4 catheter, selective left and right coronary angiographies were performed. Using 6-[place] pigtail catheter, ventriculogram was done. Total contrast used was 40 mL Optiray. Total fluoro time was 1 minute. RESULTS: * Left main patent. * Left anterior descending artery was patent. * Circumflex was patent. * Right coronary artery was patent with codominant system. * Left ventricular function showed global hypokinesis with an estimated EF of 30%-35% with LVEDP of 10 mmHg with no gradient across the aortic valve. Thus, the patient with dilated cardiomyopathy, heart failure with reduced ejection fraction. Coronary anatomy was within normal limits. At this time, the patient's chest pain is not cardiac in nature. The patient needs to be adequately treated for systolic dysfunction. We will continue to follow the patient. EXAM: Two-dimensional and M-mode echocardiogram with Doppler and color Doppler. Blood Pressure: 122/67 mmHg INDICATION Chest Pain RISK FACTORS Height: 6'1", Weight: 165 DIMENSIONS LVDd 5.3 (3.8-5.7cm) LA (2D) 3.5 (1.9-4.0cm) Aortic Root 3.4 (2.0- 3.7cm) LVDs 3.8 (2.5-4.0cm) LA (MM) (1.9-4.0cm) Aortic Cusp Exc 1.9 (1.5- 2.0cm) EF (%) 55.0 (55-70%) Rt. Atrium 4.8 (1.9-4.0cm) Asc. Aorta 3.5 cm IVSd 0.8 (0.7-1.1cm) RV (D) 4.9 (1.8-2.4cm) PWd 1.1 (0.7-1.1cm) Mitral Valve Mitral Mitral Stenosis E wave 0.51m/s MV Mean GR. mmHg A wave 0.68m/s MV Peak GR. mmHg E/A ratio 0.8 2D MVA cm2 DECEL Time 201ms PRESS 1/2 Time ms Aortic Valve Aortic Valve Aortic Stenosis LVOT Diameter 2.5 (1.8-2.4cm) Doppler DAIANA cm2 2D DAIANA 3.38cm2 Pulmonic Valve V2 0.96m/s Tricuspid Valve TR Velocity 2.72m/s RVSP 33mmHg Other Information Quality : Technically Limited Rhythm : Technically limited study due to patient position. Conclusion Sinus rhythm. Mild LV enlargement. Mild aortic root enlargement. Concentric LVH. Valves are normal. EF of 60% with normal RV function. Dopplers unremarkable. No pericardial effusion masses or vegetations. Condition at Discharge: Guarded Final Diagnosis/Problems List # Acute hypoxic respiratory failure likely due to acute on chronic possible diastolic heart failure # Possible acute on chronic exacerbation of COPD # NSTEMI likely type 2 due to above # SIRS positive # Macrocytosis likely due to alcoholism, ruled out chronic liver disease # Transaminitis likely due to alcoholism # Hypokalemia and hypomagnesemia # Dysphagia, s/p EGD # History of GERD Discharge Disposition: Home Discharge Instruct/Medications Diet: Cardiac 2g Na,low cholest Activity: No Restrictions, As Tolerated Follow Up/Referral: Follow up with [facility] in 1 week Follow up with Outpatient Gastroenterology in 4-6 weeks to discuss the biopsy reports and further management. Follow up with Cardiology in 1-2 weeks Medications: As per EMR Discharge Statement: "Patient was advised to return to the ER or call 911 if any headaches, dizziness, shortness of breath, chest pain, abdominal pain, bleeding, fevers, or worsening of medical condition. Patient was counseled about treatment plan, medications, possible side effects, patientverbalized understanding. All questions were answered to the best of my ability. This discharge took greater then 30 minutes in planning, reviewing documentation, counseling the patient, and discussing with other team members." ASSESSMENT ASSESSMENT Assessment # Acute hypoxic respiratory failure likely due to acute on chronic possible diastolic heart failure # Possible acute on chronic exacerbation of COPD # NSTEMI likely type 2 due to above # SIRS positive # Macrocytosis likely due to alcoholism, ruled out chronic liver disease # Transaminitis likely due to alcoholism # Hypokalemia and hypomagnesemia # Dysphagia, s/p EGD # History of GERD LORE SIMMONS RESIDENT Jul 30, 2024 19:43
--- NOTE | 2024-07-30 22:43 | DVHOP2 ---
Operative Report DATE OF OPERATION: 07/30/24 ; time of procedure 2:20 p.m. PROCEDURE: Upper Endoscopy with biopsy and dilate esophagus unguided. PREOPERATIVE INDICATION: The patient is a 58 -year-old male undergoing endoscopy for dysphagia POSTOPERATIVE DIAGNOSES: 1. 2-3 cm sliding-type hiatal hernia with irregular squamocolumnar junction grade B linear erosive esophagitis and there was no esophageal stricture 2. Abnormal finding of the mucosal lining of the gastric body with congestion hyperemia raised and nodular type of mucosa from which multiple biopsies were obtained , severe hypertrophic gastritis 3. [id number] gastroduodenitis otherwise normal examination up to the 2nd and 3rd part of the duodenum 4. GE junction dilator with Rios number 48 PROCEDURE PERFORMED BY: Mirna Woodard GI NURSE: Lizeth SCOPE: Olympus videoendoscope. ASA CLASS: 3. PREOPERATIVE MEDICATIONS: Mac sedation, Dr. Wade PROCEDURE IN DETAIL: After obtaining an informed consent, the patient was placed on left lateral decubitus position. The patient was then sedated with the above medications. A bite block was placed between his teeth. The endoscope was then passed through the oropharynx, into the esophagus, and through the stomach and pylorus up to the second and third part of the duodenum. The endoscope was then withdrawn. Duodenal biopsies were obtained The 2nd and 3rd part of the duodenal were normal in the duodenal bulb showed moderate duodenitis the pre-pyloric area and antrum showed [id number] gastritis On retroflexion and straight on view the patient had a very abnormal appearance of the gastric mucosal lining of the body and cardia with severe hypertrophic gastritis hyperemia and mucosal edema and raised nodularity from which multiple biopsies were obtained On retroflexion otherwise the fundus and cardia were normal. The endoscope was then withdrawn into the distal esophagus Patient had a 3 cm sliding-type hiatal hernia with slightly irregular squamocolumnar junction and grade B erosive esophagitis The endoscope was then withdrawn and subsequently Rios dilator removed 48 was passed through the distal esophagus with minimal resistance Repeat endoscopy confirmed adequate dilatation. There was no mucosal injury or bleeding. GE junction biopsies were obtained. The patient tolerated the procedure well without difficulty. COMPLICATIONS : None SPECIMENS: Duodenal biopsies Gastric biopsies Distal esophageal biopsies DISPOSITION: Transfer back to the floor Stable PLAN: 1. Await for biopsy result 2. Will place pt on Protonix 40 mg bid 3. Carafate suspension 1 g p.o. 4 times a day 4. DC aspirin NSAIDs smoking alcohol and substance abuse 5. Outpatient follow up with me in 2-4 weeks to review results and discuss further management MIRNA WOODARD MD Jul 30, 2024 22:43
== END 2024-07-30 21:04 | disposition home or self-care (01) | DRG 192 ==
LOC: ER 20:15 → OVERFLOW 23:16 → TELE-WESTW 07-28 02:07
PROVIDERS: ADMIT Student in an Organized Health Care Education/Training Program; ATTEND Student in an Organized Health Care Education/Training Program
PROC: 4A023N7 Measurement of Cardiac Sampling and Pressure, Left Heart, Percutaneous Approach (ICD-10-PCS; principal; 2024-07-29)
PROC: B2111ZZ Fluoroscopy of Multiple Coronary Arteries using Low Osmolar Contrast (ICD-10-PCS; 2024-07-29)
PROC: B2151ZZ Fluoroscopy of Left Heart using Low Osmolar Contrast (ICD-10-PCS; 2024-07-29)
PROC: 0DB98ZX Excision of Duodenum, Via Natural or Artificial Opening Endoscopic, Diagnostic (ICD-10-PCS; 2024-07-30)
PROC: 0DB68ZX Excision of Stomach, Via Natural or Artificial Opening Endoscopic, Diagnostic (ICD-10-PCS; 2024-07-30)
PROC: 0DB38ZX Excision of Lower Esophagus, Via Natural or Artificial Opening Endoscopic, Diagnostic (ICD-10-PCS; 2024-07-30)
DX: I11.0 Hypertensive heart disease with heart failure (principal); J96.01 Acute respiratory failure with hypoxia; I21.A1 Myocardial infarction type 2; E46 Unspecified protein-calorie malnutrition; I42.0 Dilated cardiomyopathy; R65.10 Systemic inflammatory response syndrome (SIRS) of non-infectious origin without acute organ dysfunction; K22.10 Ulcer of esophagus without bleeding; I50.33 Acute on chronic diastolic (congestive) heart failure; Z20.822 Contact with and (suspected) exposure to COVID-19; J44.1 Chronic obstructive pulmonary disease with (acute) exacerbation; E87.6 Hypokalemia; R13.10 Dysphagia, unspecified; K44.9 Diaphragmatic hernia without obstruction or gangrene; K21.9 Gastro-esophageal reflux disease without esophagitis; K29.90 Gastroduodenitis, unspecified, without bleeding; D64.9 Anemia, unspecified; F17.210 Nicotine dependence, cigarettes, uncomplicated; R74.01 Elevation of levels of liver transaminase levels; E83.42 Hypomagnesemia; K29.60 Other gastritis without bleeding; R63.4 Abnormal weight loss; F12.90 Cannabis use, unspecified, uncomplicated; K29.80 Duodenitis without bleeding; Z79.899 Other long term (current) drug therapy; Z68.22 Body mass index [BMI] 22.0-22.9, adult
CPT/HCPCS: 36415; 71045; 74220; 76705; 80048; 80053; 80061; 80307; 81001; 82270; 82306; 82607; 82746; 83036; 83605; 83735; 83880; 84439; 84443; 84484; 85025; 85610; 85730; 86850; 86900; 86901; 87081; 87426; 87804; 93005; 93306; 93458; 94640; 99152; 99291; G0378; J2250; J2470; J2704